=== PATIENT | male | born 1965 | race Caucasian/White ===

== ENCOUNTER 2020-02-11 13:41 | Inpatient (IN) | payer BC, SELFPAY ==
[2020-02-11] VITALS (20 sets, daily range): BP systolic 146–212; BP diastolic 90–136; PULSE 63–107; RESP 16–28; TEMP 36.7–37.1; O2SAT 93–99; BMI 42.0
--- NOTE | 2020-02-11 14:01 | ECG_ITS ---
Measurements Intervals [place] Rate: 64 P: 37 [place]: 170 QRS: -1 QRSD: 115 T: 26 QT: 429 QTc: 445 SINUS RHYTHM MODERATE INTRAVENTRICULAR CONDUCTION DELAY [110+ ms QRS DURATION] NONSPECIFIC T-WAVE ABNORMALITY No previous ECG available for comparison Electronically Signed On 02-12-2020 18:06:42 CDT by Geraldo Bee M.D. [email or web address]
--- NOTE | 2020-02-11 14:12 | ED_ITS ---
HPI - Psych General: Chief Complaint: Psychiatric Symptoms Stated Complaint: SI Time Seen by Provider: 02/11/20 13:55 Source: patient and EMS Mode of arrival: EMS Limitations: no limitations History of Present Illness: HPI Narrative: 54-year-old male who states he has been having suicidal ideations. Patient states that he took pills last night to kill himself. Friend found him asleep at home with empty bottles of melatonin ZzzQuil and Aleve. He states he took these in attempt to kill himself. He states he took them roughly at midnight. He is unsure how many he took. MD complaint: suicidal ideation Onset (ago): day(s) Duration: constant Relieving factors: none Exacerbating factors: none Associated symptoms: Reports depression and suicidal ideation Review of Systems Const: Denies: fever, chills, body aches or change in appetite Eyes: Denies: blurry vision or eye discomfort ENMT: Denies: throat pain or dental pain Card: Denies: chest pain Resp: Denies: shortness of breath GI: Denies: abdominal pain, nausea, vomiting or diarrhea : Denies: painful urination Musc: Denies: neck pain or back pain Skin/Breast: Denies: rash Neuro: Denies: headache Psych: Reports: depression and suicidal ideation Dominick/Lymph: Denies: easy bruising All/Imm: Denies: hives PFSH ED PFSH: Social History Smoking and tobacco status: never smoked Physical Exam Const: COMMON NORMALS: oriented x3 and healthy appearing GENERAL APPEARANCE: lethargic ORIENTATION/CONSCIOUSNESS: Yes lethargic HENMT: COMMON NORMALS: normocephalic and head/scalp atraumatic HEAD & SCALP: normocephalic and atraumatic Eye: COMMON NORMALS: PERRL and EOMs intact bilaterally PUPIL: Yes PERRL Neck/C-Spine: COMMON NORMALS: full ROM and supple Chest: COMMONS NORMALS: inspection of chest normal and palpation of chest normal Resp: COMMON NORMALS: normal respiratory effort, no retractions, no use of accessory muscles and clear to auscultation bilaterally AUSCULTATION: clear t o auscultation bilaterally Cardio: COMMON NORMALS: regular rate, regular rhythm and no murmurs RATE: regular rate RHYTHM: regular rhythm GI: COMMON NORMALS: normal to inspection, nondistended, normoactive bowel sounds, soft to palpation, non-tender and no masses PALPATION: Yes soft Extremity: COMMON NORMALS: normal to inspection and full ROM Neuro: COMMON NORMALS: oriented x3, moves all extremities and no focal motor deficits SENSORIUM/ORIENTATION: Yes lethargic Psych: COMMON NORMALS: mental status grossly normal and cooperative ATTITUDE: Yes withdrawn SPEECH: Yes minimal THOUGHT CONTENT: Yes suicidality Skin: COMMON NORMALS: no rashes or lesions noted and no wounds GENERAL SKIN EXAM: no rashes or lesions noted MDM - Psych MDM Narrative: Medical decision making narrative: Patient presents here with overdose on multiple medications. Patient hears slightly lethargic but will awaken and answer my questions. His Tylenol level is negative and he is no signs of reversible medications on board. Spoke to hospitalist will admit to the ICU as he needs medical clearance before psych placement. Patient placed on a 96-hour hold. Patient has been stable while in the ER. Lab Data: Labs: Lab Results 02/11/20 02/11/20 02/11/20 Range/Units 14:27 15:07 15:07 WBC 7.0 (4.0-10.0) 10^3/ uL RBC 5.69 H (4.1-5.3) 10^6/u L Hgb 16.9 H (11.7-16.6) g/dL Hct 52.8 H (42.0-52.0) % MCV 92.8 (80-94) fL MCH 29.7 (28.0-34.0) pg MCHC 32.0 (30.0-36.0) g/dL RDW 13.8 (12.1-15.1) % Plt Count 197 (130-400) 10^3/c mm MPV 11.0 H (7.4-10.4) fL Neut % (Auto) 83.2 % Lymph % (Auto) 11.1 % [place] % (Auto) 4.4 % Eos % (Auto) 0.3 % Baso % (Auto) 0.4 % Neut # (Auto) 5.9 (1.8-7.7) 10^3/u L Lymph # (Auto) 0.8 (0.8-4.8) 10^3/u L [place] # (Auto) 0.3 (0.2-0.9) 10^3/u L Eos # (Auto) 0.0 (0.0-0.8) 10^3/u L Baso # (Auto) 0.0 (0.0-0.1) 10^3/u L Nucleated RBC % (a uto) 0 % Nucleated RBCs # 0.0 /100WBC Sodium 142 (136-145) mmol/L Potassium 4.1 (3.5-5.1) mmol/L Chloride 103 (98-107) mmol/L Carbon Dioxide 14 L (22-29) mmol/L Anion Gap 29.1 H (5-19) BUN 12 (6-20) mg/dL Creatinine 1.0 (0.7-1.2) mg/dL GFR Calculation 77.3 L (90-130) mL/min Glucose 110 (65-115) mg/dL Calculated Osmolal ity 291 (285-295) mOsm/k g Calcium 9.2 (8.5-10.5) mg/dL Total Bilirubin 1.3 H (0.15-1.2) mg/dL AST 18 (0-40) U/L ALT 23 (0-41) U/L Alkaline Phosphata se 54 (40-130) IU/L Total Protein 7.1 (6.6-8.7) g/dL Albumin 4.2 (3.5-5.2) g/dL Globulin 2.9 (1.3-4.6) g/dL Salicylates < 0.3 L (3-10) mg/dL Urine Opiates Scre en Negative (Negative) ng/mL Acetaminophen < 5.0 L (10-30) ug/mL Ur Barbiturates Sc reen Negative (Negative) ng/mL Ur Phencyclidine S crn Negative (Negative) ng/mL Ur Amphetamines Sc reen Negative (Negative) ng/mL U Benzodiazepines Scrn Negative (Negative) ng/mL Urine Cocaine Scre en Negative (Negative) ng/mL U Marijuana (THC) Screen Negative (Negative) ng/mL Ethyl Alcohol < 10 (0-10) mg/dL EKG Data^: EKG 1: Attestation: I personally reviewed and interpreted this EKG as follows: EKG interpretation date: 02/11/20 EKG interpretation time: 14:21 Interpretation: nsr hr [address] or t wave abnormalities qrs 115 qtc 439 Critical Care Time Critical Care Time: Critical Care Time: Yes Total Critical Care Time: 35 Attestation: This case had a high probability of a clinically significant, sudden, or life threatening deterioration of this patient's condition which required my full and direct attention, intervention and personal management. Discharge Plan Discharge Patient Disposition: Admitted As Inpatient Clinical Impression: Suicidal ideation Overdose Qualifiers: Encounter type: initial encounter Condition: Stable Referrals: Renaldo Raymundo FNP-C [Primary Care Provider] - Coding Level of Care Code ED Asphalt Machine Operator for Chg Fwd Exam Comprehensive
--- NOTE | 2020-02-11 14:36 | PC.NURSE ---
pt placed in pt's gown and all pt belongings removed and placed in belongings bag
--- NOTE | 2020-02-11 14:56 | XR_ITS ---
WS: [id number] CHEST XRAY TECHNIQUE: Portable chest. CLINICAL INFORMATION: od COMPARISON: None. FINDINGS: Heart: Cardiomegaly Lungs: Lungs are clear. No consolidation or pleural effusion. Bones: Normal visualized bony structures. XR/XR chest 1V portable [id number] IMPRESSION: Cardiomegaly. Chest otherwise unremarkable.
[2020-02-11 15:14] LABS: Basophils % 0.4 %; Eosinophils % 0.3 %; Hematocrit 52.8 % (42.0-52.0); Hemoglobin 16.9 g/dL (11.7-16.6); Lymphocytes # 0.8 10^3/uL (0.8-4.8); Lymphocytes % 11.1 %; Mean Corpuscular Hemoglobin 29.7 pg (28.0-34.0); Mean Corpuscular Volume 92.8 fL (80-94); Monocytes # 0.3 10^3/uL (0.2-0.9); Monocytes % 4.4 %; Neutrophils # 5.9 10^3/uL (1.8-7.7); Neutrophils % 83.2 %; Nucleated Red Blood Cells % 0 %; Platelet Count 197 10^3/cmm (130-400); Red Blood Count 5.69 10^6/uL (4.1-5.3); Red Cell Distribution Width 13.8 % (12.1-15.1)
[2020-02-11 15:22] LABS: Amphetamines Screen Urine Negative (Negative); Barbiturates Screen Urine Negative (Negative); Benzodiazepines Screen Urine Negative (Negative); Cocaine Screen Urine Negative (Negative); Opiate Screen Urine Negative (Negative); PCP Screen Urine Negative (Negative); THC Screen Urine Negative (Negative)
[2020-02-11 15:38] LABS: Alanine Aminotransferase 23 U/L (0-41); Albumin Level 4.2 g/dL (3.5-5.2); Alkaline Phosphatase 54 IU/L (40-130); Anion Gap 29.1 (5-19); Aspartate Amino Transferase 18 U/L (0-40); Blood Urea Nitrogen 12 mg/dL (6-20); Calcium 9.2 mg/dL (8.5-10.5); Carbon Dioxide 14 mmol/L (22-29); Chloride 103 mmol/L (98-107); Globulin 2.9 g/dL (1.3-4.6); Glomerular Filtration Rate 77.3 mL/min (90-130); Glucose 110 mg/dL (65-115); Osmolality Calculated 291 mOsm/kg (285-295); Potassium 4.1 mmol/L (3.5-5.1); Sodium 142 mmol/L (136-145); Total Bilirubin 1.3 mg/dL (0.15-1.2); Total Protein 7.1 g/dL (6.6-8.7)
[2020-02-11 15:39] LABS: Acetaminophen < 5.0 ug/mL (10-30); Alcohol Level < 10 mg/dL (0-10); Salicylate < 0.3 mg/dL (3-10)
[2020-02-11] MEDS: hyDRALAzine 20 mg/mL INJ 1 mL 10 MG IVP ×3 (15:59→22:59)
--- NOTE | 2020-02-11 16:59 | P.HP_ITS ---
Providers/Chief Complaint Admitting Physician: Ginger Velasco MD Primary Care Provider: Renaldo Raymundo, [facility] Chief Complaint: OVERDOSE/ SI History of Present Illness Vic Louis is a 54 year old male with PMHx of Morbid obesity, Depression, MAGGIE; presents via EMS after friend found him at home on the floor somnolent after having intentionally overdosed on a mixture of melatonin, ZzzQuil and Aleve. Patient is quite somnolent during my assessment in the ER but is able to confirm this and states that he took a total of 30 mg of melatonin and approximately half a bottle of Seroquel. He admits to trying to harm himself due to worsening depression but is unwilling to provide further details on this. Per his medication list he does not seem like he takes any antidepressants. Mentions having driven to [place] yesterday [place] which does not seem to make a lot of sense. He does live alone and states that he quit smoking approximately a month ago. He tried to cut his left wrist yesterday but states that it did not work. He keeps repeating the phrases it is all too much and I want to this to end. He states that he is feeling sick to his stomach but up until yesterday was in his usual state of health. He has not been admitted at our facility in the past though there is an ER visit from 03/2018 when he presented with worsening depression and suicidal ideation. He denies any alcohol or illicit drug use. Work-up so far has been negative in cluding CBC, chemistry other than noted anion gap of 29.1. Normal LFTs, urine drug screen and alcohol screen are both negative, salicylates and acetaminophen are both negative as well. Vital signs other than blood pressure are within normal limits. Blood pressure is currently 209/136 and patient does not have a known history of hypertension. He has already received a 10 mg dose of hydralazine with repeat blood pressure being 186/120. 96-hour hold paperwork has been completed and is in the chart, one-on-one sitter is at bedside. Plan is to admit to ICU for medical clearance pending psychiatric evaluation. Review of Systems Const: Denies: fever or chills Eyes: Denies: change in vision ENMT: Reports: dry mouth Card: Denies: chest pain, swelling of feet/ankles or lightheadedness Resp: Denies: shortness of breath GI: Reports: nausea; Denies: abdominal pain or vomiting Musc: Denies: back pain Skin/Breast: Denies: rash Neuro: Reports: slurred speech Psych: Reports: depression, sleeping less and suicidal ideation Medications/Allergies Home Medications Medication Instructions Recorded Confirmed Last Taken Type ZzzQuil See Rx Instructions .ROUTE .COMPLEX 02/11/20 02/11/20 Unknown History melatonin 30 mg PO BEDTIME 02/11/20 02/11/20 Unknown History naproxen sodium [Aleve] 220 mg PO PRN 02/11/20 02/11/20 Unknown History Allergies Allergy/AdvReac Type Severity Reaction Status Date / Time fentanyl Allergy Unknown Verified 02/11/20 14:16 PFSH Acute PFSH: Medical History Depression Morbid obesity Obstructive sleep apnea Surgical History No significant past surgical history Family History (Updated 02/11/20 @ 17:11 by Ginger Velasco MD) Other Psychiatric illness Social History (Updated 02/11/20 @ 17:11 by Ginger Velasco MD) Smoking and tobacco status: former smoker Quit status (tobacco): has quit using tobacco Year quit tobacco: 12/2019 Alcohol intake: never Substance/Drug Use: never Lives independently: Yes Vitals/I&O/Wt Last Vital Signs Temp 98.3 F 02/11/20 13:44 Pulse 63 02/11/20 15:36 Resp 16 02/11/20 15:36 BP 209/136 02/11/20 15:36 Pulse Ox 94 02/11/20 14:07 Weight last 48 hrs Weight 129.274 kg Physical Exam Const: COMMON NORMALS: no apparent distress and oriented x3 GENERAL APPEARANCE: cooperative, comfortable and appears older than stated age NUTRITIONAL APPEARANCE: obese morbidly obese ORIENTATION/CONSCIOUSNESS: Yes awake and Yes lethargic HENMT: COMMON NORMALS: normocephalic, head/scalp atraumatic, hearing grossly normal bilaterally and moist oral mucous membranes HEAD & SCALP: normocephalic and atraumatic Eye: COMMON NORMALS: PERRL, EOMs intact bilaterally and conjunctivae normal CONJUNCTIVA: Yes conjunctivae normal PUPIL: Yes PERRL Neck/C-Spine: COMMON NORMALS: full ROM GENERAL: Yes normal visual inspection and Yes trachea midline OTHER: -short, thick neck Resp: COMMON NORMALS: normal respiratory effort, no retractions, no use of accessory muscles and clear to auscultation bilaterally EFFORT & INSPECTION: Yes able to speak in complete sentences, Yes symmetric chest movement and No tachypneic AUSCULTATION: clear to auscultation bilaterally Cardio: COMMON NORMALS: regular rate, regular rhythm, S1 normal heart sound, S2 normal heart sound and no murmurs RATE: regular rate RHYTHM: regular rhythm HEART SOUNDS: S1 normal and S2 normal GI: COMMON NORMALS: normal to inspection, nondistended, normoactive bowel sounds, soft to palpation and non-tender INSPECTION: Yes central obesity PALPATION: Yes soft Back/Pelvis: COMMON NORMALS: thoracic and lumbar spine normal to inspection Extremity: COMMON NORMALS: normal to inspection, full ROM, no clubbing, cyanosis or edema and no pedal edema Neuro: COMMON NORMALS: oriented x3, moves all extremities, no focal motor deficits and no sensory deficits noted Psych: COMMON NORMALS: mental status grossly normal, thought process normal, cooperative and speech normal SPEECH: Yes normal speech MOOD & AFFECT: Yes flat affect THOUGHT PROCESS: normal thought process Skin: COMMON NORMALS: no jaundice, no petechiae and no mottling NARRATIVE SKIN EXAM: -eczematous lesions on bilateral elbows, bilateral legs GENERAL SKIN EXAM: no rashes or lesions noted Data : 02/11/20 15:07 02/11/20 15:07 A&P Assessment and plan (1) Overdose: -Admits to intentional overdose on melatonin, ZzzQuil and naproxen with intention for self-harm -Secondary to worsening depression -Had also attempted to cut his left wrist yesterday -Quite somnolent likely due to medications -fall precautions -noted to be quite hypertensive, otherwise VSS -UDS, EtOH negative; negative salicylates, acetaminophen -CBC, chemistry wnl -antiemetics as needed Status: Acute Qualifiers: Encounter type: initial encounter Injury intent: intentional self-harm Qualified Code(s): T50.902A - Poisoning by unspecified drugs, medicaments and biological substances, intentional self-harm, initial encounter (2) Suicidal ideation: -on 96 hr hold, paperwork in chart -sitter at bedside -will need Psych evaluation when medically stable Status: Acute (3) Obstructive sleep apnea: -chronic hx of MAGGIE, does not use CPAP Status: Chronic (4) Morbid obesity: -BMI-42 kg/m2 Status: Chronic (5) Depression: -has known hx of depression, does not seem to be on any antidepressants per med list -may benefit from this as well as [facility] outpatient f/u Status: Chronic Qualifiers: Depression Type: unspecified Qualified Code(s): F32.9 - Major depressive disorder, single episode, unspecified Additional A&P Information -Hypertensive urgency; elevated BP in ED, received dose of hydralazine; continue to monitor vital signs; no known prior hx of HTN but may require this if continued elevated BP -CLD for now due to nausea; advance diet as tolerated -up with assist -Dispo: pending psych evaluation -Code status: FULL code -ICU admission due to 96 hr hold Attestations Medical Necessity Statement*: Vic Louis's hospital stay will require greater than 2 midnights for management of suicidal ideation with intentional drug overdose, needs medical clearance and psychiatric evaluation. Time Spent in Patient Care: Greater than 35 minutes (>than 50% of time spen t in counselling and/or direct pt care on unit) . Coding Level of Care Code Acute Payroll Lead for Chg Fwd Diagnoses Overdose T50.902C Encounter type: initial encounter Injury intent: intentional self-harm Suicidal ideation R45.851 Obstructive sleep apnea G47.33 Morbid obesity E66.01 Depression F32.9 Depression Type: unspecified
[2020-02-11] MEDS: ondansetron 2 mg/ML SDV 2 mL 4 MG IVP (18:31)
[2020-02-11] MEDS: sodium chloride 0.9% 1,000 ML 100 ML IV (19:53)
[2020-02-11] MEDS: cloNIDine 0.1 mg Tablet PO (20:49)
--- NOTE | 2020-02-11 23:08 | CTR_ITS ---
PROCEDURE INFORMATION: Exam: CT Head Without Contrast Exam date and time: 02/11/2020 11:10 PM Age: 54 years old Clinical indication: Speech disturbance; Slurred speech; Additional info: Stoke alert TECHNIQUE: Imaging protocol: Computed tomography of the head without contrast. Total DLP: 713.34 mGy-cm Radiation optimization: All CT scans at this facility use at least one of these dose optimization techniques: automated exposure control; mA and/or kV adjustment per patient size (includes targeted exams where dose is matched to clinical indication); or iterative reconstruction. Other technique: STROKE PROTOCOL was implemented. COMPARISON: No relevant prior studies available. FINDINGS: Brain: There is diffuse cerebral atrophy and chronic microvascular white matter disease. There is a focal hypodensity in the right caudate nucleus suggesting a chronic lacunar infarct. There is a focal hypodensity in the left caudate nucleus suggesting a chronic lacunar infarct. There is no acute intracranial hemorrhage. Ventricles: Normal. No ventriculomegaly. Bones/joints: The calvarium is intact. Sinuses: Visualized sinuses are unremarkable. No fluid levels. Mastoid air cells: The mastoid air cells are clear. Soft tissues: There is a 14 mm diameter round circumscribed fat attenuation mass in the right lacrimal gland. CT/CT head wo con* [id number] IMPRESSION: 1. No acute findings. 2. Old lacunar infarcts in the caudate nuclei bilaterally. 3. 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 ASSESSMENT: ASPECTS ([place] Stroke Program Early CT Score) is 10. Radiation Dose CTDIVOL = (mGy): DLP = 713.34 (mGy-cm)
[2020-02-11 23:10] LABS: Glucose Point of Care 102 mg/dL (70-110)
--- NOTE | 2020-02-11 23:24 | ECG_ITS ---
Measurements Intervals [place] Rate: 110 P: [place]: 0 QRS: -37 QRSD: 105 T: 47 QT: 323 QTc: 438 ATRIAL FLUTTER/TACHYCARDIA WITH RAPID VENTRICULAR RESPONSE MARKED LEFT AXIS DEVIATION [QRS AXIS < -30] POSSIBLE INFERIOR MYOCARDIAL INFARCTION [30 ms Q WAVE IN II/aVF], PROBABLY OLD INTERPRETATION BASED ON A DEFAULT AGE OF 40 YEARS No previous ECG available for comparison Electronically Signed On 02-12-2020 18:09:04 CDT by Geraldo Bee M.D. [email or web address]
[2020-02-11 23:56] LABS: Basophils # 0.1 10^3/uL (0.0-0.1); Basophils % 0.4 %; Eosinophils % 0.1 %; Hematocrit 60.9 % (42.0-52.0); Lymphocytes # 1.3 10^3/uL (0.8-4.8); Lymphocytes % 9.7 %; Mean Corpuscular HGB Conc 31.2 g/dL (30.0-36.0); Mean Corpuscular Hemoglobin 29.4 pg (28.0-34.0); Mean Corpuscular Volume 94.3 fL (80-94); Mean Platelet Volume 10.9 fL (7.4-10.4); Monocytes # 1.2 10^3/uL (0.2-0.9); Monocytes % 8.8 %; Neutrophils # 10.7 10^3/uL (1.8-7.7); Neutrophils % 80.4 %; Nucleated Red Blood Cells % 0 %; Platelet Count 262 10^3/cmm (130-400); Red Blood Count 6.46 10^6/uL (4.1-5.3); Red Cell Distribution Width 14.4 % (12.1-15.1); White Blood Count 13.2 10^3/uL (4.0-10.0)
[2020-02-12] VITALS (66 sets, daily range): BP systolic 126–234; BP diastolic 63–142; PULSE 66–119; RESP 12–25; TEMP 37.2–39.9; O2SAT 86–100
--- NOTE | 2020-02-12 00:01 | CTR_ITS ---
PROCEDURE INFORMATION: Exam: CT Angiography Head With Contrast Exam date and time: 02/12/2020 12:15 AM Age: 54 years old Clinical indication: Speech disturbance; Slurred speech; Additional info: Stroke alert TECHNIQUE: Imaging protocol: Computed tomography angiography of the head with intravenous contrast. 3D rendering: MIP and/or 3D reconstructed images were created by the technologist. Total DLP: 3114.8 mGy-cm Radiation optimization: All CT scans at this facility use at least one of these dose optimization techniques: automated exposure control; mA and/or kV adjustment per patient size (includes targeted exams where dose is matched to clinical indication); or iterative reconstruction. Contrast material: OMNI 350; Contrast volume: 95 ml; Contrast route: IV; COMPARISON: CT head wo con* [id number] 02/11/2020 11:13 PM FINDINGS: Right internal carotid artery: There is mild atherosclerotic disease in the cavernous portion of the right internal carotid artery without significant stenosis. Right anterior cerebral artery: No occlusion or significant stenosis. No aneurysm. Right middle cerebral artery: No occlusion or significant stenosis. No aneurysm. Right posterior cerebral artery: No occlusion or significant stenosis. No aneurysm. Right vertebral artery: No occlusion or significant stenosis. No aneurysm. Left internal carotid artery: There is mild atherosclerotic disease in the cavernous portion of the left internal carotid artery without significant stenosis. Left anterior cerebral artery: No occlusion or significant stenosis. No aneurysm. Left middle cerebral artery: No occlusion or significant stenosis. No aneurysm. Left posterior cerebral artery: origin of the left posterior cerebral artery. No occlusion or aneurysm. Left vertebral artery: No occlusion or significant stenosis. No aneurysm. Basilar artery: No occlusion or significant stenosis. No aneurysm. 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 IMPRESSION: No arterial stenosis, occlusion or aneurysm. PROCEDURE INFORMATION: Exam: CT Angiography Neck With Contrast Exam date and time: 02/12/2020 12:15 AM Age: 54 years old Clinical indication: Speech disturbance; Slurred speech; Additional info: Stroke alert TECHNIQUE: Imaging protocol: Computed tomography angiography of the neck with intravenous contrast. 3D rendering: MIP and/or 3D reconstructed images were created by the technologist. Total DLP: 3114.8 mGy-cm Radiation optimization: All CT scans at this facility use at least one of these dose optimization techniques: automated exposure control; mA and/or kV adjustment per patient size (includes targeted exams where dose is matched to clinical indication); or iterative reconstruction. Contrast material: OMNI 350; Contrast volume: 95 ml; Contrast route: IV; COMPARISON: CT head wo con* [id number] 02/11/2020 11:13 PM FINDINGS: Limitations: Moderate motion artifact limits evaluation of the central to mid portions of the carotid and vertebral arteries bilaterally. Right common carotid artery: No stenosis. No dissection or occlusion. Right internal carotid artery: Retropharyngeal course of the right internal carotid artery with mild atherosclerotic disease centrally and no apparent stenosis or occlusion. Marked motion artifact prevents evaluation of the carotid bifurcation. There are portions of the right distal common and proximal internal carotid artery which are not visible due to motion artifact. Right external carotid artery: Obscured centrally. No apparent occlusion. Right vertebral artery: No dissection or occlusion. Partially obscured in the proximal to midportion. Left common carotid artery: No stenosis. No dissection or occlusion. Left internal carotid artery: Retropharyngeal course of the left internal carotid artery with mild atherosclerotic disease centrally and no apparent stenosis or occlusion. Marked motion artifact prevents evaluation of the carotid bifurcation. There are portions of the left distal common and proximal internal carotid artery which are not visible due to motion artifact. Left external carotid artery: Obscured centrally. No apparent occlusion. Left vertebral artery: No dissection or occlusion. Partially obscured in the proximal to midportion. NECK: Bones/joints: Unremarkable Soft tissues: Soft tissues in the neck and thoracic inlet are unremarkable. Lungs: Lung apices are clear. CT/CT angio headneck* [id number] IMPRESSION: No visible significant arterial stenosis or occlusion. The exam is limited by motion artifact which prevents adequate evaluation of the distal common and proximal internal carotid arteries bilaterally. The central to mid portions of both vertebral arteries are also partially obscured. REFERENCES: NASCET CRITERIA. The degree of internal carotid artery stenosis is based on NASCET criteria. Normal is no stenosis. Mild is less than 50% stenosis. Moderate is 50-69% stenosis. Severe is 70% to 99% stenosis. Total occlusion is no detectable patent lumen. Radiation Dose CTDIVOL = (mGy): DLP = 3114.8~3114.8 (mGy-cm)
[2020-02-12 00:04] LABS: INR 1.05 (0.8-1.2)
--- NOTE | 2020-02-12 00:10 | PM.CCN ---
Critical Care Event Note Critical Care Event The high probability of a clinically significant, sudden or life threatening deterioration of the patient's neurovasvular system(s) required my full and direct attention, intervention and personal management. The critical care time is as shown. This time is in addition to time spent performing any reported procedures but includes the following: x Data and vital sign review and interpretation x Patient assessment, examination and intervention x Documentation x Medication orders and management Called emergently to the ICU for acute mental status change and neurological changes. I arrived within a minute of being called. Patient was irritable and not really able to follow commands. Quick neurological exam showed equally reactive pupils, what appeared to be grossly intact extraocular movements, lack of gag reflex, very slight right upper extremity drift. Patient was not really cooperative with remainder of examination. He was speaking words which I could understand but they did not make sense. He was taken immediately to CAT scan. Upon return more complete examination revealed an NIH score of 15. Of note on this repeat exam patient had absent response to confrontation of the right eye on repeated evaluation. He continued to have a right upper extremity drift. Patient also had positive Babinski on the right and downgoing toe on the left. Stroke alert was called and Dr. Carson came in to see him. Patient's last known well was around 10:30 PM when he was able to follow commands and speak more intelligibly. With persistent findings, TPA was ordered and bolus was initiated right at midnight. CTA of the head and neck has been ordered. We are working on notifying next of kin. The number we have on file is going straight to voicemail. Other available numbers are for nonfamily members. They are working on trying to get in touch with the family member. Stat labs have been ordered which I will follow-up on. We will follow serial neuro exams. I put in orders for TPA patient. Will call Dr. Carson when I have the CTA results back. Critical Care Time Critical Care Time: Code activated: No Critical Care Time (min): 75 Additional information about critical care time: I was called at 11:01 pm. I arrived 11:02 pm. Stroke Alert called 11:03 pm. Have spent 75 min in direct pt care thus far. Coding Level of Care Code Acute Parking Meter Installer for Mignon Watson
[2020-02-12 00:13] LABS: Alanine Aminotransferase 27 U/L (0-41); Albumin Level 5.3 g/dL (3.5-5.2); Alkaline Phosphatase 73 IU/L (40-130); Anion Gap 36.4 (5-19); Aspartate Amino Transferase 17 U/L (0-40); Blood Urea Nitrogen 8 mg/dL (6-20); Calcium 10.3 mg/dL (8.5-10.5); Chloride 104 mmol/L (98-107); Glomerular Filtration Rate 77.3 mL/min (90-130); Glucose 100 mg/dL (65-115); Osmolality Calculated 290 mOsm/kg (285-295); Potassium 5.4 mmol/L (3.5-5.1); Sodium 142 mmol/L (136-145); Total Bilirubin 0.7 mg/dL (0.15-1.2); Total Protein 9.3 g/dL (6.6-8.7)
[2020-02-12] MEDS: iohexol 350 mg/mL 100 mL Btl IV (00:17)
[2020-02-12 00:32] LABS: Troponin(5th) Baseline 17 ng/mL (0-15)
[2020-02-12 00:34] LABS: Carbon Dioxide 7 mmol/L (22-29)
[2020-02-12] MEDS: LORazepam 2 mg/mL INJ 1 mL (00:39)
[2020-02-12] MEDS: labetalol 5 mg/mL SDV 20mL 10 MG IVP (01:03)
[2020-02-12] MEDS: midazolam 1 mg/mL INJ 2 mL 4 MG (01:26)
[2020-02-12] MEDS: etomidate 10 ML 20 MG (01:27)
[2020-02-12] MEDS: rocuronium 10 mg/mL INJ 5mL 100 MG (01:27)
[2020-02-12 01:31] LABS: Troponin 5 2HR 19.43 ng/mL (0-15); Troponin 5 2HR Delta 2.43 ABS# (0-10)
--- NOTE | 2020-02-12 01:36 | P.PNCC_ITS ---
Critical Care Event Note Critical Care Event The high probability of a clinically significant, sudden or life threatening deterioration of the patient's respiratory and renal system(s) required my full and direct attention, intervention and personal management. The critical care time is as shown. This time is in addition to time spent performing any reported procedures but includes the following: x Data and vital sign review and interpretation x Patient assessment, examination and intervention x Documentation x Medication orders and management Laboratory studies collected earlier ended up showing increased H&H at 19/60, CO2 was down to 7 on CMP with an anion gap of 36. VBG was subsequently ordered and showed a pH of 7.0. Bicarb on the VBG was around 3. I have ordered lactic acid, troponin, serum ketones. I reviewed earlier studies. He had had an anion gap of 26 with a bicarb of 14 earlier. Salicylates and Tylenol level were negative. Alcohol was negative. Urine drug screen was unremarkable. Chest x-ray was negative. He did not have a urinalysis that I have found. I would not expect something like this from melatonin overdose. With Zzquil, anticholinergic symptoms are expected, but from what I could gather it was not clear exactly how much he took. He does appear clinically dry, has been confused and then became progressively lethargic. Some dysarthria. PERRL. He was urinating in the bed. Not clear halluncinations, fever, red or hot skin. I am concerned he may have taken something else he did not report which is contributing to the metabolic acidosis. He does not obviously appear to be septic with significant hypertension, lack of fever and normal white count earlier at presentation. Current white count is 13. That could be reactive from acute events this evening but have to keep in mind the possibility of an infectious source. He is not able to respiratorily compensate appropriately for the degree of metabolic acidosis currently present. I went on and made the decision to intubate him. I have also started the patient on nicardipine drip for blood pressure control in the setting of TPA administration. I did go on and start him on a bicarb drip. With recent initiation of TPA, I have not placed an NG tube. We are going to use a smaller Cisneros catheter currently to see if we can get some urine. We want to minimize any resistance or potential injury that might contribute to bleeding. I have not ordered any ABGs currently but will follow venous blood gas. I have asked respiratory not to do a sputum culture or deep suction at this time also given that TPA bolus was just administered. We have continued to be unable to get in touch with family. He has a friend that nurses were able to speak to but that person does not have power of district attorney. They were going to continue to try to get in touch with patient's sister. Mr. Louis is in critical condition with severe metabolic acidosis with anion gap, currently of unclear etiology, clinical evidence of acute stroke earlier leading to TPA administration, hypertensive urgency, polycythemia, in addition to the suicidal ideation and overdose that he originally presented with. Critical Care Time Critical Care Time: Code activated: No Critical Care Time (min): 45 Additional information about critical care time: 45 additional minutes apart from intubation procedure for a total critical care time on 02/12/2020 of 62 minutes thus far Procedures Intubation Sedative: etomidate Mg given: 20 Paralytic: rocuronium Mg given: 100 Laryngoscope: fiber optic video scope ET tube size: 8 ET tube uncuffed: No Tube secured depth (cm): 26 Tube secured location: lips Tube placement confirmation: visualized tube passing through cords, equal breath sounds bilaterally, no breath sounds over epigastrium and color change noted Patient tolerated procedure: well Intubation complications: none Additional comments: Patient also received 2 mg of Versed. Attempt was made x2. Initially no color change and I suspect when we pulled out the stylette, the tube did not advance through the cords as was originally noted. ET tube cuff was deflated and tube was withdrawn. There was a scant, couple of millimeter bit of sputum with a brownish red-tinge at the time this tube was withdrawn. No visible bleeding was seen otherwise during this or the second intubation attempt. Both times vocal cords were easy to visualize. Coding Level of Care Code Acute Cnc Mill Programmer for Mignon Watson
--- NOTE | 2020-02-12 01:38 | XR_ITS ---
WS: [id number] CHEST XRAY TECHNIQUE: Portable chest. CLINICAL INFORMATION: post intubation COMPARISON: February 11, 2020 FINDINGS: Endotracheal tube with tip above the vince measuring 3.3 cm in good position. Heart: Cardiomegaly. Lungs: Shallow inspiration. No acute-appearing pulmonary infiltrates. Bones: Mild thoracic curve. XR/XR chest 1V portable [id number] IMPRESSION: 1. Endotracheal tube with tip 3.3 cm above the vince. 2. Stable cardiomegaly. 3. Shallow inspiration. No acute-appearing pulmonary infiltrates.
[2020-02-12 01:47] LABS: Lactic Sepsis W/Reflex 9.2 mmol/L (0.5-2.2)
[2020-02-12 01:49] LABS: Ketone (Acetest) Serum Negative (Negative)
[2020-02-12] MEDS: propofol 1,000 MG/100 ML INJ 15.5 MG IV (01:50)
[2020-02-12] MEDS: nicardipine 20 MG/200 ML PREMIX 50 MG IV (01:52)
[2020-02-12 02:22] LABS: HCO3 VBG 3.2 mmol/L (24-28); PCO2 VBG 12.4 mmHg (41-51); PO2 VBG 77.8 mmHg (25-40); pH VBG 7.02 (7.32-7.42)
[2020-02-12 02:23] LABS: Base Excess VBG -25.4 mmol/L (-3.0-3.0)
[2020-02-12 02:51] LABS: Add Urine Microscopic? YES; Bilirubin Urine Neg (NEGATIVE); Blood Urine 3+ (Negative); Glucose Urine UA Norm (Normal); Ketones Urine 1+ (Negative); Leukocyte Esterase Urine Negative (Negative); Nitrate Urine Negative (Negative); Protein Urine Trace (Negative); Urine Appearance Clear (CLEAR); Urine Color Yellow (Yellow); Urobilinogen Urine Norm (Negative); pH Urine 5 (5-7)
[2020-02-12 02:52] LABS: Add Urine Culture? No; Bacteria Urine TRACE; RBC Urine 0-4 /hpf (0-2); Squamous Epithelial Cell Urine RARE (0-5); WBC Urine RARE /hpf (0-5)
[2020-02-12 03:00] LABS: Reflex Lactate Order REFLEX LACTIC ORDERD
[2020-02-12 03:16] LABS: Chol HDL Ratio 5.73 mg/dL (1.0-5.00); Cholesterol 235 mg/dL (0-200); Creatine Phosphokinase 59 U/L (39-308); HDL Cholesterol 41 mg/dL (60-100); LDL Cholesterol Calculated 162 mg/dL (50-129); LDL HDL Ratio 3.95 RATIO (0.00-3.22); Triglycerides 158 mg/dL (0-150)
[2020-02-12 03:19] LABS: Salicylate < 0.3 mg/dL (3-10)
[2020-02-12 03:33] LABS: Basophils # 0.2 10^3/uL (0.0-0.1); Basophils % 0.5 %; Eosinophils % 0.1 %; Hematocrit 62.7 % (42.0-52.0); Hemoglobin 19.1 g/dL (11.7-16.6); Lymphocytes # 1.8 10^3/uL (0.8-4.8); Lymphocytes % 5.7 %; Mean Corpuscular HGB Conc 30.5 g/dL (30.0-36.0); Mean Corpuscular Hemoglobin 29.6 pg (28.0-34.0); Mean Corpuscular Volume 97.2 fL (80-94); Mean Platelet Volume 10.8 fL (7.4-10.4); Monocytes # 3.4 10^3/uL (0.2-0.9); Neutrophils # 25.1 10^3/uL (1.8-7.7); Neutrophils % 80.6 %; Nucleated Red Blood Cells % 0 %; Platelet Count 380 10^3/cmm (130-400); Red Blood Count 6.45 10^6/uL (4.1-5.3); Red Cell Distribution Width 14.6 % (12.1-15.1)
[2020-02-12 03:35] LABS: Blood Gas Sample Site LINE; Blood Gas Sample Type Venous; Blood Gas Tidal Volume 0.55; Oxygen Device VENT
[2020-02-12 03:39] LABS: Base Excess VBG -28.3 mmol/L (-3.0-3.0); HCO3 VBG 5.2 mmol/L (24-28); PCO2 VBG 29.7 mmHg (41-51); pH VBG 6.86 (7.32-7.42)
[2020-02-12 03:47] LABS: Anion Gap 36.4 (5-19); Blood Urea Nitrogen 11 mg/dL (6-20); Calcium 9.5 mg/dL (8.5-10.5); Chloride 107 mmol/L (98-107); Creatine Phosphokinase 66 U/L (39-308); Glomerular Filtration Rate 48.4 mL/min (90-130); Glucose 180 mg/dL (65-115); Osmolality Calculated 297 mOsm/kg (285-295); Potassium 6.4 mmol/L (3.5-5.1); Sodium 143 mmol/L (136-145)
[2020-02-12 03:49] LABS: Estmated Average Glucose 103; Hemoglobin A1C 5.2 % (4.0-6.0)
[2020-02-12 03:56] LABS: Lactic Acid level (Lactate) 8.1 mmol/L (0.5-2.2)
[2020-02-12 03:57] LABS: Carbon Dioxide 6 mmol/L (22-29)
[2020-02-12 04:13] LABS: White Blood Count 31.1 10^3/uL (4.0-10.0)
[2020-02-12] MEDS: calcium gluconate 0.1 gm/mL 10% SDV 10mL 1 GM IVP (04:22)
[2020-02-12] MEDS: vancomycin 1,000 MG in sodium chloride 0.9% 250 ML 250 MG IV (04:22)
[2020-02-12] MEDS: dextrose 50% syringe 50 mL 25 ML IVP (04:22)
[2020-02-12] MEDS: insulin regular-human 10 UNIT in SYRINGE 1 EACH IVP (04:23)
[2020-02-12] MEDS: sodium chloride 0.9% 1,000 ML 999 ML IV ×2 (05:18→06:15)
[2020-02-12] MEDS: levofloxacin-dextrose 5 % 750 MG/150 ML PREMIX 100 MG IV (05:18)
[2020-02-12] MEDS: piperacillin-tazobactam 3.375 GM in sodium chloride 0.9% (plus) 50 ML IV ×2 (05:20→18:37)
--- NOTE | 2020-02-12 05:24 | ECG_ITS ---
Measurements Intervals [place] Rate: 101 P: MT: 0 QRS: -7 QRSD: 126 T: 46 QT: 342 QTc: 445 ATRIAL FLUTTER/TACHYCARDIA WITH RAPID VENTRICULAR RESPONSE PROBABLE INFERIOR MYOCARDIAL INFARCTION [35 ms Q WAVE IN II/aVF], PROBABLY OLD No previous ECG available for comparison Electronically Signed On 02-12-2020 18:15:17 CDT by Geraldo Bee M.D. [id number]
[2020-02-12 06:24] LABS: Troponin 5 6HR 43.92 ng/mL (0-15)
[2020-02-12] MEDS: nicardipine 20 MG/200 ML PREMIX 25 MG IV (06:31)
[2020-02-12 06:33] LABS: Troponin 5 6HR Delta 26.92 ng/L (0-12)
--- NOTE | 2020-02-12 07:05 | PC.NURSE ---
2300: This nurse entered patients room. Patient was climbing out of bed. Patient unable to state name and where he is at. Neurochecks preformed. Drift noticed in Right arm. Patient unable to hold bilateral legs off bed. This nurse called charge into room. Blood pressure 240's/150. Dr. Casas notified of patients symptoms. Sroke alert called. Dr. Casas at bedside. Patient taken to CT. Dr Carson informed of patients current condition. Dr. Carson at bedside. Dr. Carson ordered to tPA. 9 mL bolus given with infusion rate of 81mLs an hour. Patient then taken to CT while tPA is infusing. After returning to room lab results were received. CO2 was 7, bicard 6, and pH 7.02. 10 mg of labetalol given for blood pressure in the 200's systolic. Dr. Casas intuabted at 0130. 20mg of Etomidate given along with 100 of Rocuronium, 2 mg of Versed. Patient sedated with propofol and started on Cardene gtt at 5mg/hr for blood pressure. Patient started on Sodium Bicarb gtt. VSS stable at this time. NIHSS performed Q4 hrs. 0400 ordered 2 1L blouses of NS. Patient started on Vancomycin, Zosyn, Levofloxacin and Thiamine. 0500 Poison control notified of patients condition. Guidelines sent to Dr Casas for suspected condition. Fomepizole given per Dr. Casas.
--- NOTE | 2020-02-12 08:31 | P.PNCC_ITS ---
Stroke Alert Activation ED Arrival Date: 02/11/20 ED Arrival Time: 22:30 ED Physican at Bedside: 23:03 Last Known Normal/at Baseline: < 1 hour ago Other Last Known Well Infomation: Patient in ICU with overdose of melatonin and ZZZquil was talking and moving all 4 extremities well when examined by his patient care nurse, Erik, at 2230. His blood pressure was markedly elevated. At 2250 he was noted to have slurred speech and repetitive phrase complaining of shortness of breath. Shortly after, he stopped speaking and would not respond to commands. He became more somnolent. Stroke alert was called by his nurse at 2303. I talked with the patient care nurse and then with Dr. Casas while she briefly examined the patient on his way to CT. At that time she was concerned that he had drift on the right and an upgoing toe. CT head showed atrophy. Telestroke was activated and I was brought in on Dr. Casas's exam after completion of CT head. Dr. Casas was planning to treat the patient's markedly elevated blood pressure but it came down passively so that he was candidate for tPA by the time that I arrived at the bedside a short time later and we completed the NIHSS at 2350. He had right visual field cut to threat, global aphasia, right arm relative weakness and right upgoing toe. No hemorrhage on CT. Blood pressure was controlled. He recieved the bolus of tPA at 0004, 61 minutes after stroke alert was called. Delay was imposed by his blood pressure. Stroke Alert Activated by: patient care nurse Stroke Alert Activation Time: 23:03 Stroke MD @ Bedside Time: 23:03 NIH Stroke Scale Time: 23:50 NIH Stroke Scale Score: NIH Stroke Scale Score: 15 NIH stroke score NIHSS: Level Of Consciousness - 1a: 1 Level Of Consciousness Questions - 1b: Neither Correct Level Of Consciousness Commands - 1c: Neither Correct Best Gaze - 2: Normal Visual Alarcon - 3: Complete Hemianopia Facial Palsy - 4: Normal Motor Arm Right - 5: Drift Motor Arm Left - 5: No Drift Motor Leg Right - 6: Effort Against Dickens Motor Leg Left - 6: Effort Against Dickens Limb Ataxia - 7: Absent Sensory - 8: Normal Best Language - 9: Mute; Global Aphasia Dysarthia - 10: Mild/Moderate Dysarthia Extinction And Inattention - 11: 0 Score: Total Score: 16 Stroke Alert Data/Treatment Time to CT of Head: 23:10 CT Results Time: 23:10 CT Impression: atrophy otherwise negative Stroke Risk Factors: obesity and depression tPA Started Date: 02/12/20 tPA Started Time: tPA Started - Time: 00:04 tPA Admin Prior to Arrival: No Other Patient & Family Education: Family could not be reached. Patient was unable to give consent. Standardized Stroke Orders Used: Yes Other Information: Patient was hyperventilating and acidotic. Presumably he was intoxicated on a substance other than melatonin and Dr. Casas was in search of determining other toxicity. Critical Care Time Critical Care Time: 30 - 74 mins Coding Level of Care Code Acute Pattern Scratcher for Mignon Watson
--- NOTE | 2020-02-12 09:27 | PC.OT ---
OT EVALUATION HELD DUE TPA ADMINISTRATION. WILL HOLD UNTIL 02/12
--- NOTE | 2020-02-12 09:41 | P.PN_ITS ---
Subjective Subjective: Interval history: Patient seen and examined, very unfortunate circumstances overnight, discussed extensively with Dr. Casas and reviewed documentation. He remains intubated and on mechanical ventilator support (70%/550/8), breathing over vent; has been off sedation for about 10 hrs, unresponsive. Off nicardipine drip with better controlled BP. Remains profoundly acidotic. Plan for HD, Dr. Hobson will place temporary catheter for this and Dr. Jc will arrange for emergent dialysis. Has had 1450 mL urine output so far. Afebrile, peaked T waves on telemetry though regular rhythm. On isolation precautions pending COVID-19 testing. Retail Service Technician called and states he has a copy of patient's healthcare directive, requested he fax it to us. Overall, poor prognosis. Medications: Reviewed: Yes Medication Review Details: Active Medications Generic Name Dose Route Start Last Admin Trade Name Freq PRN Reason Stop Dose Admin Acetaminophen 650 mg 02/11/20 18:28 Tylenol PO Q6H PRN MILD PAIN Aspirin 81 mg 02/13/20 09:00 Aspirin Ec PO DAILY QUEENIE Atorvastatin Calci um 20 mg 02/12/20 21:00 Lipitor PO BEDTIME QUEENIE Hydralazine HCl 10 mg 02/11/20 18:28 02/11/20 22:59 Apresoline IVP 10 mg Q4H PRN Administration SYSTOLIC BLOOD MA ESSURE nicardipine 20 mg in 200 mls @ 0 mls/hr 02/12/20 01:00 02/12/20 06:31 Cardene IV 2.5 mg/hr .Q0M QUEENIE 25 mls/hr Administration Protocol Per Protocol Sodium Bicarbonate 150 meq/ 1,000 mls @ 100 m ls/hr 02/12/20 01:15 02/12/20 01:50 Dextrose IV 100 mls/hr .Q10H QUEENIE Administration Propofol 1,000 mg in 100 m ls @ 0 mls/hr 02/12/20 01:45 02/12/20 04:00 Diprivan IV 0 mcg/kg/min .Q0M QUEENIE 0 mls/hr Titration Protocol Per Protocol Piperacillin Sod/T azobactam 50 mls @ 12.5 mls /hr 02/12/20 04:00 02/12/20 05:20 Sod 3.375 gm/ So dium Chloride IV 12.5 mls/hr Q8H QUEENIE Administration Protocol Levofloxacin/Dextr ose 750 mg in 150 mls @ 100 mls/hr 02/12/20 04:00 02/12/20 05:18 Levaquin-D5w IV 100 mls/hr Q24H QUEENIE Administration Protocol Fomepizole 130 mg/ Sodium 100.13 mls @ 200. 26 mls/hr 02/12/20 12:00 Chloride IV 02/13/20 06:29 Q6H QUEENIE Ondansetron HCl 4 mg 02/11/20 18:28 02/11/20 18:31 Zofran IVP 4 mg Q6H PRN Administration NAUSEA AND VOMITI NG fentanyl Allergy (Verified 02/11/20 14:16) Unknown Vitals/I&O/Wt Last Vital Signs Temp 98.1 F 02/11/20 19:45 Pulse 94 02/12/20 08:15 Resp 16 02/12/20 08:42 BP 140/80 02/12/20 08:15 Pulse Ox 96 02/12/20 08:15 02/11/20 02/12/20 02/12/20 22:59 06:59 14:59 Intake Total 1182.633 / 1182.633 Output Total 450 / 450 1000 / 1450 Balance -450 / -450 182.633 / -267.367 Weight last 48 hrs Weight 129.274 kg Physical Exam Const: COMMON NORMALS: no apparent distress GENERAL APPEARANCE: ill appearing, appears older than stated age and patient mechanically ventilated NUTRITIONAL APPEARANCE: obese morbidly obese ORIENTATION/CONSCIOUSNESS: Yes other (unresponsive) HENMT: COMMON NORMALS: normocephalic and head/scalp atraumatic HEAD & SCALP: normocephalic and atraumatic MOUTH: other (orally intubated) Eye: PUPIL: Yes pupil size - right (fixed and dilated) and Yes pupil size - left (pinpoint) Neck/C-Spine: GENERAL: Yes normal visual inspection and Yes trachea midline OTHER: -short, thick neck Resp: COMMON NORMALS: normal respiratory effort, no retractions and no use of accessory muscles EFFORT & INSPECTION: Yes symmetric chest movement and No tachypneic OTHER: -intubated, breathing over vent (70%/550/8) Cardio: COMMON NORMALS: regular rate, regular rhythm, S1 normal heart sound, S2 normal heart sound and no murmurs RATE: regular rate RHYTHM: regular rhythm HEART SOUNDS: S1 normal and S2 normal GI: COMMON NORMALS: normal to inspection, nondistended, normoactive bowel sounds and soft to palpation INSPECTION: Yes central obesity PALPATION: Yes soft : BLADDER/KIDNEY EXAM: Yes catheter in place Catheter type (Male): urethral Back/Pelvis: COMMON NORMALS: thoracic and lumbar spine normal to inspection Extremity: COMMON NORMALS: normal to inspection and full ROM NARRATIVE EXTREMITY EXAM: -non-pitting edema of bilateral hands Neuro: PUPIL EXAM: Dilated: right, Pinpoint: left and Fixed/non-reactive: right OTHER: -unresponsive currently Psych: OTHER: -unable to assess due to unresponsiveness Skin: COMMON NORMALS: no jaundice NARRATIVE SKIN EXAM: -eczematous lesions on bilateral elbows, bilateral legs GENERAL SKIN EXAM: mottling (bilateral hands) Urinary Catheter Management^: Cisneros: Cath Placed During This Visit: yes Urethral Indwelling: Yes Reason for Continuing Indwelling Catheter: Accurate Measurement of Urinary Output in Critically Ill Patients Data : 02/12/20 03:10 02/12/20 03:10 Micro: Microbiology 02/12/20 05:54 Blood Culture - Preliminary Blood SPECIMEN COLLECTED A&P Assessment and plan (1) Metabolic acidosis, increased anion gap: -profoundly metabolic acidotic with increasing anion gap -on bicarbonate drip, fomepizole (per discussion with Poison Control) -discussed with nephrology Dr. Jc, plan for dialysis later today -surgery consult by Dr. Hobson appreciated; will place temporary dialysis catheter -worsening renal function Status: Acute (2) Acute respiratory failure: -intubated overnight for airway protection in light of decreased responsiveness, acidosis, and acute CVA -remains on mechanical ventilator support -no sedation though remains unresponsive -severe metabolic acidosis, lactic acidosis -no acute abnormality noted on CXR -seems to breathing over vent -COVID-19 testing, isolation precautions; done as patient was recently (2-3 weeks ago) in [facility] Status: Acute Qualifiers: Respiratory failure complication: hypoxia and hypercapnia Qualified Co de(s): J96.01 - Acute respiratory failure with hypoxia; J96.02 - Acute respiratory failure with hypercapnia (3) CVA (cerebral vascular accident): -code stroke overnight due to noted decreased responsiveness, received tPA (around midnight) and evaluated by Dr. Carson -currently unresponsive and on mechanical ventilator support -required nicardipine drip for BP control prior to tPA administration -R pupil fixed and dilated, L pupil pinpoint -profoundly acidotic so difficult to ascertain if neurological impairment primarily from CVA or from metabolic abnormality Status: Acute Qualifiers: CVA mechanism: unspecified Qualified Code(s): I63.9 - Cerebral infarction, unspecified (4) Overdose: -Admits to intentional overdose on melatonin, ZzzQuil and naproxen with intention for self-harm but with current metabolic abnormalities and significant change in clinical status, very suspicious for having possibly ingested ethylene glycol or methanol, testing pending -plan for emergent HD today -Secondary to worsening depression -Had also attempted to cut his left wrist yesterday -UDS, EtOH negative; negative salicylates, acetaminophen -CBC, chemistry wnl -antiemetics as needed Status: Acute Qualifiers: Encounter type: initial encounter Injury intent: intentional self-harm Qualified Code(s): T50.902A - Poisoning by unspecified drugs, medicaments and biological substances, intentional self-harm, initial encounter (5) NSTEMI (non-ST elevated myocardial infarction): -noted troponin elevation with significant delta of 27 -telemetry monitoring, noted peaked T waves -suspect this is likely type II secondary to demand ischemia with acute respiratory failure, degree of acidosis -no prior known hx of CAD, no prior cardiac workup Status: Acute (6) Suicidal ideation: -on 96 hr hold, paperwork in chart -sitter at bedside -will need Psych evaluation when medically stable Status: Acute (7) Obstructive sleep apnea: -chronic hx of MAGGIE, does not use CPAP Status: Chronic (8) Morbid obesity: -BMI-42 kg/m2 Status: Chronic (9) Depression: -has known hx of depression, does not seem to be on any antidepressants per med list -may benefit from this as well as [facility] outpatient f/u Status: Chronic Qualifiers: Depression Type: unspecified Qualified Code(s): F32.9 - Major depressive disorder, single episode, unspecified Additional A&P Information -Hypertensive urgency; elevated BP in ED, received dose of hydralazine; continue to monitor vital signs; no known prior hx of HTN but may require this if continued elevated BP -NPO -bedrest -Dispo: pending clinical improvement -Code status: FULL code -ICU admission due to vent support, need for emergent dialysis -called and spoke to patient's older sister Mary Turner ([phone]) who lives in [place] to update her on patient's clinical status and discuss need for emergent dialysis which she agrees to. She is the point of contact. -very guarded prognosis given change in clinical status, unresponsiveness Attestations Medical Necessity Statement*: Patient requires hospitalization for continued management of severe metabolic acidosis requiring emergent dialysis, acute respiratory failure on vent support, post-tPA management secondary to acute CVA. Time Spent in Patient Care: Greater than 35 minutes (>than 50% of time spent in counselling and/or direct pt care on unit) . Critical Care Time: The high probability of a clinically significant, sudden o r life threatening deterioration of the patient's [cardiovascular, respiratory, renal] system(s) required my full and direct attention, intervention and personal management. The critical care time is as shown. This time is in addition to time spent performing any reported procedures but includes the following: [x] Data and vital sign review and interpretation [x] Patient assessment, examination and intervention [x] Documentation [x] Medication orders and management Critical Care Time (min): 45 Coding Level of Care Code Acute Photographer Assistant for g Fwd Diagnoses Metabolic acidosis, increased anion gap E87.2 Acute respiratory failure J96.01; J96.02 Respiratory failure complication: hypoxia and hypercapnia CVA (cerebral vascular accident) I63.9 CVA mechanism: unspecified Overdose T50.902A Encounter type: initial encounter Injury intent: intentional self-harm NSTEMI (non-ST elevated myocardial infarction) I21.4 Suicidal ideation R45.851 Obstructive sleep apnea G47.33 Morbid obesity E66.01 Depression F32.9 Depression Type: unspecified
[2020-02-12 10:19] LABS: Osmolality Serum 377
--- NOTE | 2020-02-12 10:27 | PM.CONSULT ---
Providers/Reason For Consult Consulting Physican/Specialty*: Dr. Villegas Reason for Consult*: Hemodialysis catheter placement Attending Physician: Ginger Velasco MD Primary Care Provider: JHONY Brown History of Present Illness History of Present Illness Chief complaint Patient is in critical condition in the ICU HPI: Mr. Vic Louis is a 54 year old male with associated multiple medical comorbidities including morbid obesity, patient was overdose per history and he had severe metabolic acidosis and was recommended to obtain a dialysis access to help the patient in recovery yet the overall prognosis is poor per hospitalist description. Due to patient's recent travel to [place] he was tested for COVID-19 pending results. General surgery was consulted to obtain a dialysis access on urgent basis I was able to obtain an informed consent per patient's daughter and brother over the phone and that was witnessed per YONI Whittaker in the ICU. Particularly the patient is at high risk of bleeding since recent TPA was implemented for stroke Review of Systems General: Reports: ROS unobtainable due to endotracheal tube Meds/Allergies Home Medications and Allergies Home Medications Medication Instructions Recorded Confirmed Type ZzzQuil See Rx Instructions .ROUTE .COMPLEX 02/11/20 02/11/20 History melatonin 30 mg PO BEDTIME 02/11/20 02/11/20 History naproxen sodium [Aleve] 220 mg PO PRN 02/11/20 02/11/20 History Allergies Allergy/AdvReac Type Severity Reaction Status Date / Time fentanyl Allergy Unknown Verified 02/12/20 10:27 Current Medications Current Medications Generic Name Dose Route Start Last Admin Trade Name Freq PRN Reason Stop Dose Admin Hydralazine HCl 10 mg 02/11/20 18:28 02/11/20 22:59 Apresoline IVP 10 mg Q4H PRN Administration SYSTOLIC BLOOD PRESSURE nicardipine 20 mg in 200 mls @ 0 mls/hr 02/12/20 01:00 02/12/20 06:31 Cardene IV 2.5 mg/hr .Q0M QUEENIE 25 mls/hr Administration Protocol Per Protocol Sodium Bicarbonate 150 meq/ 1,000 mls @ 100 mls/hr 02/12/20 01:15 02/12/20 01:50 Dextrose IV 100 mls/hr .Q10H QUEENIE Administration Propofol 1,000 mg in 100 mls @ 0 mls/hr 02/12/20 01:45 02/12/20 04:00 Diprivan IV 0 mcg/kg/min .Q0M QUEENIE 0 mls/hr Titration Protocol Per Protocol Piperacillin Sod/Tazobactam 50 mls @ 12.5 mls/hr 02/12/20 04:00 02/12/20 05:20 Sod 3.375 gm/ Sodium Chloride IV 12.5 mls/hr Q8H QUEENIE Administration Protocol Levofloxacin/Dextrose 750 mg in 150 mls @ 100 mls/hr 02/12/20 04:00 02/12/20 05:18 Levaquin-D5w IV 100 mls/hr Q24H QUEENIE Administration Protocol Ondansetron HCl 4 mg 02/11/20 18:28 02/11/20 18:31 Zofran IVP 4 mg Q6H PRN Administration NAUSEA AND VOMITING PFSH Acute PFSH: Medical History Depression Hypertension Morbid obesity Neuralgia of right upper extremity seen by lAli Obstructive sleep apnea Surgical History No significant past surgical history Family History Other Psychiatric illness Social History Smoking and tobacco status: former smoker Quit status (tobacco): has quit using tobacco Year quit tobacco: 12/2019 Alcohol intake: never Substance/Drug Use: never Lives independently: Yes Vitals/I&O/Wt Last Vital Signs Temp 98.1 F 02/11/20 19:45 Pulse 98 02/12/20 10:00 Resp 16 02/12/20 08:42 BP 131/80 02/12/20 10:00 Pulse Ox 96 02/12/20 10:00 02/11/20 02/12/20 02/12/20 22:59 06:59 14:59 Intake Total 1182.633 / 1182.633 Output Total 450 / 450 1000 / 1450 Balance -450 / -450 182.633 / -267.367 Weight last 48 hrs Weight 285 lb Physical Exam Narrative: EXAM NARRATIVE: Patient is intubated BMI obese Head and neck examination PERRLA no masses no cervical lymphadenopathy no jaundice Patient is intubated on mechanical ventilation Abdomen nontender nondistended soft no organomegaly guarding or rigidity/no signs of peritonitis Extremities no cyanosis no clubbing no edema Data Micro: Micro: Microbiology 02/12/20 05:54 Blood Culture - Pr eliminary Blood SPECIMEN MARILUZ ORTIZ A&P Assessment and plan (1) Overdose: Plan of care; After thorough history physical examination and reviewing the chart, I counseled the patient's sister and brother for uregnt temporary dialysis catheter placement, indications, risks includinginjury of major vascular structures also the high risk of bleeding since the patient was on TPA 12 hours ago, benefits, and alternatives were all discussed with the patient's family Patient was tested for COVID-19 pending results All necessary precautions will be taken including droplet and contact precautions Informed consent per chart Assurance and education All questions have been answered Status: Acute Qualifiers: Encounter type: initial encounter Injury intent: intentional self-harm Qualified Code(s): T50.902A - Poisoning by unspecified drugs, medicaments and biological substances, intentional self-harm, initial encounter Consult Attestations Medical Necessity Statement: Medical necessity care is expected to cross 2 midnights Time Spent in Patient Care: Greater than 35 minutes (>than 50% of time spent in counselling and/or direct pt care on unit). Critical Care Time: Critical Care Time (min): 45 Coding Level of Care Code Acute [employer] Principal for Chg Fwd Diagnoses Overdose T50.902A Encounter type: initial encounter Injury intent: intentional self-harm
--- NOTE | 2020-02-12 13:00 | P.PCN_ITS ---
Procedure/Consent Time out: Time Out Performed: Yes Consent: Consent for Procedure: Consent obtained from other (indicate) (Patient's sister and brother), Emergency procedure, Risks & Benefits reviewed and Agrees to proceed with procedure Procedure Narrative: Pre Procedure diagnosis; severe metabolic acidosis Postprocedure diagnoses the same Procedure done; placement of 12 Pashto temporary dialysis catheter right femoral vein Due to COVID-19 as patient is pending testing ,ll droplet and contact precautions were undertaken and the procedure was done in the ICU in an isolated room. Medications were reviewed to assess for anticoagulant usage.Risks and benefits and prevention of central line associated blood stream infection (CLABSI) were discussed with the patient/CPOA, and a consent was obtained. Monitors were in place and monitored throughout the procedure. All necessary supplies were available prior to start. Hand hygiene was completed prior to starting. Maximum barrier technique was utilized including a sterile gown, sterile gloves with a hat and mask.Site was was prepped with [chlorhexidine] and a full body drape was placed. 5 mL of 2% lidocaine was injected into the skin with a 25 gauge needle. Description Local anesthetic in the form of 1% lidocaine infiltrated at the site of insertion of the catheter Prep& drape was done under the usual sterile technique of the [facility] groin, lidoc candice 1% was injected at the site of the stick, started by right femoral vein under ultrasound guidance and all the interpretation was done by me through the whole entire procedure, no intraluminal thrombosis was identified. The right femoral vein stick retrieved venous blood was obtained from the first stick, a guidewire was then threaded, at that point the guidewire was secured to the drapes with a hemostat and the needle was taken out, followed by that serial dilators ,the dilator was then taken out, glide wire maintained to be in good position and the hemodialysis catheter 12 Pashto was introduced onto the guidewire, with venous and arterial hubs were flushed and retrieved venous blood without difficulty Hep-Lock's were then applied I Was present for the whole entire procedure No specimen No immediate complication Estimated blood loss 5-10 ml Rubber Calender Helper surgical jadon Jacobs Circulating nurse ICU nurse Amando Patient continued to be stable through the whole entire procedure and on mechanical ventilation Acute Procedures Epistaxis Control: Time out performed: Yes
[2020-02-12] MEDS: sodium chloride 0.9% 1,000 ML 100 ML IV (14:28)
[2020-02-12 14:31] LABS: Coronavirus Lab Test PTC NOT DETECTED
--- NOTE | 2020-02-12 15:05 | PM.CONSULT ---
Providers/Reason For Consult Consulting Physican/Specialty*: Nephrology Reason for Consult*: Eval for acidosis Attending Physician: Ginger Velasco MD Primary Care Provider: JHONY Brown History of Present Illness History of Present Illness Vic Louis is a 54 year old male. Thank you for consultation. Today I reviewed this 54 year old gentleman. He was admitted throughout the night last night, having taken a combination of Melatonin, Seroquel, ZzzQuil. Throughout the night his mentation got progressively worse. A stroke code was called, he fulfilled criteria for acute tPA therapy. For details of this documentation please refer to the neurology consultation. Since this time, his mentation got progressively worse, he was intubated and mechanically ventilated. His blood pressure was intermittently elevated, and has remained relatively stable. Unfortunately his anion gap progressively increased, his lactic acid level also increased roughly 9. There was concern for ingestion of volatiles. Workup was sent including serum osmolality, as well as volatile screen, and we are waiting for the results. In the meantime Fomepizole was initiated. Creatinine has remained at ~1.5 and he is making urine. No known history of HETAL. Surgery has kindly placed a high risk dialysis line for our use. Review of Systems Narrative: ROS unobtainable as critically sick in the ICU Meds/Allergies Home Medications and Allergies Home Medications Medication Instructions Recorded Confirmed Type ZzzQuil See Rx Instructions .ROUTE .COMPLEX 02/11/20 02/11/20 History melatonin 30 mg PO BEDTIME 02/11/20 02/11/20 History naproxen sodium [Aleve] 220 mg PO PRN 02/11/20 02/11/20 History Allergies Allergy/AdvReac Type Severity Reaction Status Date / Time fentanyl Allergy Unknown Verified 02/12/20 10:27 Current Medications Current Medications Generic Name Dose Route Start Last Admin Trade Name Freq PRN Reason Stop Dose Admin Hydralazine HCl 10 mg 02/11/20 18:28 02/11/20 22:59 Apresoline IVP 10 mg Q4H PRN Administration SYSTOLIC BLOOD PRESSURE nicardipine 20 mg in 200 mls @ 0 mls/hr 02/12/20 01:00 02/12/20 06:31 Cardene IV 2.5 mg/hr .Q0M QUEENIE 25 mls/hr Administration Protocol Per Protocol Sodium Bicarbonate 150 meq/ 1,000 mls @ 100 mls/hr 02/12/20 01:15 02/12/20 12:57 Dextrose IV 100 mls/hr .Q10H QUEENIE Administration Propofol 1,000 mg in 100 mls @ 0 mls/hr 02/12/20 01:45 02/12/20 04:00 Diprivan IV 0 mcg/kg/min .Q0M QUEENIE 0 mls/hr Titration Protocol Per Protocol Piperacillin Sod/Tazobactam 50 mls @ 12.5 mls/hr 02/12/20 04:00 02/12/20 05:20 Sod 3.375 gm/ Sodium Chloride IV 12.5 mls/hr Q8H QUEENIE Administration Protocol Levofloxacin/Dextrose 750 mg in 150 mls @ 100 mls/hr 02/12/20 04:00 02/12/20 05:18 Levaquin-D5w IV 100 mls/hr Q24H QUEENIE Administration Protocol Fomepizole 1,300 mg/ Sodium 101.3 mls @ 200.26 mls/hr 02/12/20 13:15 02/12/20 13:22 Chloride IV 02/13/20 07:46 200.3 mls/hr Q6H QUEENIE Administration Sodium Chloride 1,000 mls @ 100 mls/hr 02/12/20 14:11 02/12/20 14:28 Sodium Chloride 0.9% IV 02/13/20 00:10 100 mls/hr .Q10H ONE Administration Ondansetron HCl 4 mg 02/11/20 18:28 02/11/20 18:31 Zofran IVP 4 mg Q6H PRN Administration NAUSEA AND VOMITING PFSH Acute PFSH: Medical History Depression Hypertension Morbid obesity Neuralgia of right upper extremity seen by [place] Obstructive sleep apnea Surgical History No significant past surgical history Family History Other Psychiatric illness Social History Smoking and tobacco status: former smoker Quit status (tobacco): has quit using tobacco Year quit tobacco: 12/2019 Alcohol intake: never Substance/Drug Use: never Lives independently: Yes Vitals/I&O/Wt Last Vital Signs Temp 98.9 F 02/12/20 10:15 Pulse 101 H 02/12/20 14:00 Resp 23 H 02/12/20 14:32 BP 135/91 02/12/20 14:00 Pulse Ox 100 02/12/20 14:00 02/12/20 02/12/20 02/12/20 06:59 14:59 22:59 Intake Total 1182.633 / 2598.370 8597 / 1000 Output Total 1000 / 1450 Balance 182.633 / -653.340 3565 / 1000 Weight last 48 hrs Weight 129.274 kg Physical Exam Const: ORIENTATION/CONSCIOUSNESS: Yes other (Obtunded in the ICU ) HENMT: COMMON NORMALS: normocephalic and head/scalp atraumatic HEAD & SCALP: normocephalic and atraumatic Neck/C-Spine: COMMON NORMALS: no JVD Lymph: LYMPHATIC: no lymphadenopathy noted Resp: COMMON NORMALS: normal respiratory effort and no retractions Cardio: COMMON NORMALS: no JVD, regular rate and regular rhythm RATE: regular rate RHYTHM: regular rhythm Extremity: COMMON NORMALS: normal to inspection Urinary Catheter Management^: Cisneros: Cath Placed During This Visit: no Urethral Indwelling: Yes Reason for Continuing Indwelling Catheter: Accurate Measurement of Urinary Output in Critically Ill Patients Data Micro: Micro: Microbiology 02/12/20 05:54 Blood Culture - Pr eliminary Blood SPECIMEN COLLEC ANGEL A&P Additional A&P Information 1. Renal failure and acidosis - given the increasing anion gap and our inability to exclude volatile ingestion, after discussing with [facility] [place] members including Dr Velasco, Dr Alfonso we believe that the best course of action will be to proceed with emergency dialysis - 3K bath, no UF, high flow settings including 400 blood flow, 800 dialysate flow, for 4 hrs; trouble with line flow - repeat chemistry at the end of dialysis - will watch for serum osmo and volatile screen - daily evaluation - am labs 2. VDRF per ICU, weaning as tolerated 3. Hemodynamics remain stable 4. Leukocytosis and shock - cultures sent and pending; broad spec Abx therapy Coding Level of Care Code Acute Process Control Technician for Chg Walter
--- NOTE | 2020-02-12 15:47 | PC.SLP ---
The patient is not able to participate in PERMACULTURE CONTRACTOR evaluation at this time due to his current status, responsiveness.
--- NOTE | 2020-02-12 16:26 | PC.NURSE ---
HEART RATE DROP Patient's heart rate dropped from 90-100s to 60's. Small increase in hypertension since dialysis treatment started. Dr. Velasco notified. Physician is okay with staying off cardene gtt at this time. No new orders at this time.
--- NOTE | 2020-02-12 20:48 | PC.NURSE ---
[facility] Casas aware.
--- NOTE | 2020-02-12 22:00 | PC.NURSE ---
KILEY NGUYEN CALLED AND WANTED UPDATE. FAMILY MEMBER WAS TOLD OF ANY CHANGES. FAMILY STATED THAT WHEN HE GETS BETTER HE CAN TELL US MORE. DR IZAGUIRRE WAS ASKED BY NURSE WHAT FAMILY HAD BEEN TOLD OF PT STATUS, DR STATED THEY WERE TOLD PT WAS DOING POORLY.
[2020-02-12] MEDS: hyDRALAzine 20 mg/mL INJ 1 mL 10 MG IVP (22:15)
[2020-02-12] MEDS: acetaminophen 650 mg Supp PR (22:51)
--- NOTE | 2020-02-12 23:27 | PC.NURSE ---
DR IZAGUIRRE WAS CALLED DUE TO FEVER. SHE GAVE ORDER TO CHANGE TYLENOL TO RECTAL.
--- NOTE | 2020-02-12 23:30 | PC.NURSE ---
PT CONVERTED OUT OF JUNCTIONAL RYTHMN.
[2020-02-13] VITALS (35 sets, daily range): BP systolic 157–222; BP diastolic 95–127; PULSE 80–109; RESP 12–37; TEMP 39–40.4; O2SAT 89–97; BMI 40.5
--- NOTE | 2020-02-13 01:14 | PC.NURSE ---
pt temp is 104.2, dr berumen was called. She gave order for cooling blanket and ice packs to be applied.
[2020-02-13] MEDS: piperacillin-tazobactam 3.375 GM in sodium chloride 0.9% (plus) 50 ML IV ×2 (02:17→12:46)
--- NOTE | 2020-02-13 04:11 | PC.NURSE ---
DR IZAGUIRRE GAVE THE OKAY TO DO COLD WATER LAVAGE THROUGH OG TUBE. WHEN PUTTING OG TUBE DOWN, A BROWN/RED SUBSTANCE CAME OUT OF ABDOMEN.
--- NOTE | 2020-02-13 04:13 | XR_ITS ---
WS: [id number] CHEST XRAY TECHNIQUE: Portable chest. CLINICAL INFORMATION: OG PLACEMENT VERIFICATION COMPARISON: February 12, 2020 FINDINGS: Endotracheal tube with tip 4.1 cm above the vince. Enteric tube tip below diaphragm. Heart: Normal cardiac silhouette. Lungs: Lungs are clear. No consolidation or pleural effusion. Bones: Normal visualized bony structures. XR/XR chest 1V portable [id number] IMPRESSION: 1. Endotracheal tube in good position. Enteric tube with tip below the diaphra gm. 2. Lungs are well aerated.
[2020-02-13] MEDS: levofloxacin-dextrose 5 % 750 MG/150 ML PREMIX 100 MG IV (04:16)
--- NOTE | 2020-02-13 04:33 | P.EN_ITS ---
Event Note Event Note: Patient's fever has continued to rise through the night, despite Tylenol. Most recent temperature is 105.3. In addition to the Tylenol we have used ice packs and went on and placed an NG tube with some ice water lavage as well. Upon placement of the NG tube, patient had a very dark brown almost black appearing thin substance suctioned from the gut. Interestingly had minimal odor. Did not smell or look like blood. Honestly smelled a bit like flat Coca- Cola. A sample of this has been saved and is in the room. Patient's overall color is improved compared to last night. He remains hypertensive but currently 190s over 90s. Heart rate is in the 80s and oxygen saturation is 97%. Pupils are still unequal and he remains unresponsive. He has not been on any sedation since around 10:[address] of the head is ordered for later this morning. He has no evidence of bleeding from the right femoral dialysis catheter site.
--- NOTE | 2020-02-13 06:04 | PC.NURSE ---
SHIFT SUMMARY Patient has remained unresponsive. Pt has been turned periodically. Pt has been febrile, ice packs applied. Latest temp was 103.1 rectally. Pt pupils remain unequal and unreactive. Dr Deluca rounded on pt. Pt blood pressure is better controlled this morning as well, 194/97. Hydralzine was given once when systolic 242.
--- NOTE | 2020-02-13 06:07 | P.PN_ITS ---
Subjective Subjective: Interval history: Patient continues to be in critical condition Uneventful placement of right femoral 12 Gibraltarian dialysis catheter yesterday done in the ICU by me Patient undergone dialysis Vitals/I&O/Wt Last Vital Signs Temp 103.3 F H 02/13/20 06:00 Pulse 80 02/13/20 06:00 Resp 18 02/13/20 04:02 BP 194/97 02/13/20 06:00 Pulse Ox 95 02/13/20 06:00 02/12/20 02/12/20 02/13/20 14:59 22:59 06:59 Intake Total 1238.383 / 8457.126 7658.3 / 2539.683 101.3 / 2640.983 Output Total 250 / 250 Balance 1238.383 / 9965.366 7669.3 / 2539.683 -148.7 / 2390.983 Weight last 48 hrs Weight 285 lb Physical Exam Narrative: EXAM NARRATIVE: Patient continues to be intubated in critical c ondition Abdomen nontender nondistended soft no organomegaly guarding or rigidity/no signs of peritonitis Obese Right groin femoral dialysis catheter line in place without complication and no evidence of bleeding or Hematoma formation. Urinary Catheter Management^: Cisneros: Cath Placed During This Visit: no Urethral Indwelling: Yes Reason for Continuing Indwelling Catheter: Accurate Measurement of Urinary Output in Critically Ill Patients Data : 02/12/20 03:10 02/12/20 03:10 Micro: Microbiology 02/12/20 05:54 Blood Culture - Preliminary Blood NEGATIVE TO DATE 02/12/20 16:07 Blood Culture - Preliminary Blood SPECIMEN COLLECTED A&P Assessment and plan (1) Overdose: Plan of care; From general surgery standpoint of view no further intervention Continue dialysis per nephrology recommendation Please call for questions or concerns Thank you for consulting general surgery to participate taking care Status: Acute Qualifiers: Encounter type: initial encounter Injury intent: intentional self-harm Qualified Code(s): T50.902A - Poisoning by unspecified drugs, medicaments and biological substances, intentional self-harm, initial encounter Attestations Medical Necessity Statement*: Medical necessity care is expected to cross 2 midnights Time Spent in Patient Care: 16 - 35 minutes (>than 50% of time spent in counselling and/or direct pt care on unit) . Coding Level of Care Code Acute Human Resources Trainee for Chg Fwd Diagnoses Overdose T50.902A Encounter type: initial encounter Injury intent: intentional self-harm
--- NOTE | 2020-02-13 07:20 | PC.NURSE ---
RECEIVED REPORT FROM HS SHIFT. PT NON-RESPONSIVE PUPILS NONREACTIVE ABDOMEN COOL & MOTTLED UPPER EXTREMITIES WARM & EDEMATOUS.
--- NOTE | 2020-02-13 08:28 | P.PN_ITS ---
Subjective Subjective: Interval history: Febrile overnight with Tmax-105.3 F, NGT placed for ice water lavage and treated with Tylenol VA; most recent temp is 103.[address] head later this AM. Labs ordered. Had 250 mL urine output overnight. No noted bleeding. Remains on vent support, FiO2 down to 60%. Received a dose of hydralazine due to significant hypertension. Pupils remain unequal. Repeat CT head significantly worse with noted hematoma, diffuse hydrocephalus and cerebral edema. Findings discussed with radiology. Called and updated patient's sister Mary Turner and she has agreed to changing CODE STATUS to DNR/DNI. Brother Slava Louis is on his way and Mary and another brother will make their way here tomorrow. I did explain that patient may before they get here and she understands. She would like to see him before withdrawing care. Medications: Reviewed: Yes Medication Review Details: Active Medications Generic Name Dose Route Start Last Admin Trade Name Freq PRN Reason Stop Dose Admin Acetaminophen 650 mg 02/12/20 22:46 02/12/20 22:51 Tylenol VA 650 mg Q6H PRN Administration fever Aspirin 81 mg 02/13/20 09:00 Aspirin Ec PO DAILY QUEENIE Atorvastatin Calci um 20 mg 02/12/20 21:00 02/12/20 19:42 Lipitor PO Not Given BEDTIME QUEENIE Hydralazine HCl 10 mg 02/11/20 18:28 02/12/20 22:15 Apresoline IVP 10 mg Q4H PRN Administration SYSTOLIC BLOOD VA ESSURE nicardipine 20 mg in 200 mls @ 0 mls/hr 02/12/20 01:00 02/12/20 10:00 Cardene IV 0 mg/hr .Q0M QUEENIE 0 mls/hr Titration Protocol Per Protocol Sodium Bicarbonate 150 meq/ 1,000 mls @ 100 m ls/hr 02/12/20 01:15 02/12/20 23:00 Dextrose IV 100 mls/hr .Q10H QUEENIE Administration Propofol 1,000 mg in 100 m ls @ 0 mls/hr 02/12/20 01:45 02/12/20 04:00 Diprivan IV 0 mcg/kg/min .Q0M QUEENIE 0 mls/hr Titration Protocol Per Protocol Piperacillin Sod/T azobactam 50 mls @ 12.5 mls /hr 02/12/20 04:00 02/13/20 02:17 Sod 3.375 gm/ So dium Chloride IV 12.5 mls/hr Q8H QUEENIE Administration Protocol Levofloxacin/Dextr ose 750 mg in 150 mls @ 100 mls/hr 02/12/20 04:00 02/13/20 04:16 Levaquin-D5w IV 100 mls/hr Q24H QUEENIE Administration Protocol Ondansetron HCl 4 mg 02/11/20 18:28 02/11/20 18:31 Zofran IVP 4 mg Q6H PRN Administration NAUSEA AND VOMITI NG fentanyl Allergy (Verified 02/12/20 10:27) Unknown Vitals/I&O/Wt Last Vital Signs Temp 103.3 F H 02/13/20 06:00 Pulse 80 02/13/20 06:00 Resp 17 02/13/20 08:24 BP 194/97 02/13/20 06:00 Pulse Ox 95 02/13/20 06:00 02/12/20 02/13/20 02/13/20 22:59 06:59 14:59 Intake Total 1301.3 / 2539.683 101.3 / 2640.983 Output Total 250 / 250 Balance 1301.3 / 2539.683 -148.7 / 2390.983 Weight last 48 hrs Weight 128.094 kg Weight 129.274 kg Physical Exam Const: COMMON NORMALS: no apparent distress GENERAL APPEARANCE: ill appearing, appears older than stated age and patient mechanically ventilated NUTRITIONAL APPEARANCE: obese morbidly obese ORIENTATION/CONSCIOUSNESS: Yes other (unresponsive) HENMT: COMMON NORMALS: normocephalic and head/scalp atraumatic HEAD & SCALP: normocephalic and atraumatic MOUTH: other (orally intubated) Eye: COMMON NORMALS: EOMs intact bilaterally and conjunctivae normal CONJUNCTIVA: Yes conjunctivae normal PUPIL: Yes pupil size - right (fixed and dilated) and Yes pupil size - left (slightly larger than pinpoint) Neck/C-Spine: GENERAL: Yes normal visual inspection and Yes trachea midline OTHER: -short, thick neck Resp: COMMON NORMALS: normal respiratory effort, no retractions and no use of accessory muscles EFFORT & INSPECTION: Yes symmetric chest movement and No tachypneic OTHER: -intubated, breathing over vent (50%/550/8) Cardio: COMMON NORMALS: regular rate, regular rhythm, S1 normal heart sound, S2 normal heart sound and no murmurs RATE: regular rate RHYTHM: regular rhythm HEART SOUNDS: S1 normal and S2 normal OTHER: -significantly hypertensive GI: COMMON NORMALS: normal to inspection, nondistended, normoactive bowel sounds and soft to palpation INSPECTION: Yes central obesity PALPATION: Yes soft : BLADDER/KIDNEY EXAM: Yes catheter in place Back/Pelvis: COMMON NORMALS: thoracic and lumbar spine normal to inspection Extremity: COMMON NORMALS: normal to inspection and full ROM NARRATIVE EXTREMITY EXAM: -non-pitting edema of bilateral hands Neuro: COMMON NORMALS: moves all extremities, no focal motor deficits and no sensory deficits noted PUPIL EXAM: Dilated: right, Pinpoint: left and Fixed/non-reactive: right OTHER: -unresponsive currently Psych: OTHER: -unable to assess due to unresponsiveness Skin: COMMON NORMALS: no jaundice NARRATIVE SKIN EXAM: -eczematous lesions on bilateral elbows, bilateral legs GENERAL SKIN EXAM: mottling (bilateral hands, abdomen) Urinary Catheter Management^: Cisneros: Cath Placed During This Visit: no Urethral Indwelling: Yes Reason for Continuing Indwelling Catheter: Accurate Measurement of Urinary Output in Critically Ill Patients Data : 02/13/20 08:50 02/13/20 08:50 Micro: Microbiology 02/12/20 05:54 Blood Culture - Preliminary Blood NEGATIVE TO DATE 02/12/20 16:07 Blood Culture - Preliminary Blood SPECIMEN COLLECTED A&P Assessment and plan (1) Metabolic acidosis, increased anion gap: -profoundly metabolic acidotic with increasing anion gap -on bicarbonate drip, fomepizole (per discussion with Poison Control) -discussed with nephrology Dr. Jc, trial of dialysis yesterday (02/11) not very successful -surgery consult by Dr. Hobson appreciated; placed temporary dialysis catheter (R femoral) -worsening renal function Status: Acute (2) Acute respiratory failure: -intubated on 02/10 for airway protection in light of decreased responsiveness, acidosis, and acute CVA -remains on mechanical ventilator support -no sedation though remains unresponsive -severe metabolic acidosis, lactic acidosis -no acute abnormality noted on CXR -seems to breathing over vent -COVID-19 testing negative, off isolation precautions; done as patient was recently (2-3 weeks ago) in [facility] Status: Acute Qualifiers: Respiratory failure complication: hypoxia and hypercapnia Qualified Code(s): J96.01 - Acute respiratory failure with hypoxia; J96.02 - Acute respiratory failure with hypercapnia (3) CVA (cerebral vascular accident): -code stroke overnight (02/11) due to noted decreased responsiveness, received tPA (around midnight) and evaluated by Dr. Carson -currently unresponsive and on mechanical ventilator support -required nicardipine drip for BP control prior to tPA administration -R pupil fixed and dilated, L pupil pinpoint -profoundly acidotic so difficult to ascertain if neurological impairment primarily from CVA or from metabolic abnormality -repeat CT head: Large new right basal ganglia and thalamic intraparenchymal hematoma extending into the midbrain and marni, new moderate diffuse hydrocephalus with obstruction of the third ventricle and mild right to left mid line shift, cerebral edema. Read worsening on imaging, lack of responsiveness clinically, noted continued hemodynamic instability, anticipate brain herniation. Status: Acute Qualifiers: CVA mechanism: unspecified Qualified Code(s): I63.9 - Cerebral infarction, unspecified (4) Overdose: -Admits to intentional overdose on melatonin, ZzzQuil and naproxen with intention for self-harm but with current metabolic abnormalities and significant change in clinical status, very suspicious for having possibly ingested ethylene glycol or methanol, testing pending -HD on 02/11 -Secondary to worsening depression -Had also attempted to cut his left wrist yesterday -UDS, EtOH negative; negative salicylates, acetaminophen -CBC, chemistry wnl -antiemetics as needed -methyl alcohol level ordered and pending; serum osm-377 Status: Acute Qualifiers: Encounter type: initial encounter Injury intent: intentional self-harm Qualified Code(s): T50.902A - Poisoning by unspecified drugs, medicaments and biological substances, intentional self-harm, initial encounter (5) NSTEMI (non-ST elevated myocardial infarction): -noted troponin elevation with significant delta of 27 -telemetry monitoring, noted peaked T waves -suspect this is likely type II secondary to demand ischemia with acute respiratory failure, degree of acidosis -no prior known hx of CAD, no prior cardiac workup Status: Acute (6) Suicidal ideation: Status: Acute (7) Obstructive sleep apnea: -chronic hx of MAGGIE, does not use CPAP Status: Chronic (8) Morbid obesity: -BMI-41 kg/m2 Status: Chronic (9) Depression: -has known hx of depression, does not seem to be on any antidepressants per med list -may benefit from this as well as [facility] outpatient f/u Status: Chronic Qualifiers: Depression Type: unspecified Qualified Code(s): F32.9 - Major dep ressive disorder, single episode, unspecified Additional A&P Information -Hypertensive urgency; elevated BP in ED, received dose of hydralazine; continue to monitor vital signs; no known prior hx of HTN but may require this if continued elevated BP -NPO -bedrest -Dispo: with continued decompensation, anticipate expiration -Code status: DNR/DNI -ICU admission due to vent support, need for emergent dialysis, critical illness -called and spoke to patient's older sister Mary Turner ([phone]) who lives in [place] to update her on patient's clinical status and discuss CT findings and likelihood of herniation; she agrees to DNR/DNI and is trying to ge t here tomorrow. She is the point of contact. Per DPOA paperwork in chart, patient had registered as organ donor. -very poor prognosis given change in clinical status, unresponsiveness. Impending in light of anticipated brain herniation Attestations Medical Necessity Statement*: Patient requires hospitalization for continued vent support, post-CVA management s/p tPA, management of severe metabolic acidosis. Time Spent in Patient Care: Greater than 35 minutes (>than 50% of time spent in counselling and/or direct pt care on unit) . Critical Care Time: The high probability of a clinically significant, sudden or life threatening deterioration of the patient's [cardiovascular, neuro, respiratory] system(s) required my full and direct attention, intervention and personal management. The critical care time is as shown. This time is in addition to time spent performing any reported procedures but includes the following: [x] Data and vital sign review and interpretation [x] Patient assessment, examination and intervention [x] Documentation [x] Medication orders and management Critical Care Time (min): 30 Coding Level of Care Code Acute Environmental Compliance Engineer for Chg Fwd Exam Comprehensive Diagnoses Metabolic acidosis, increased anion gap E87.2 Acute respiratory failure J96.01; J96.02 Respiratory failure complication: hypoxia and hypercapnia CVA (cerebral vascular accident) I63.9 CVA mechanism: unspecified Overdose T50.902A Encounter type: initial encounter Injury intent: intentional self-harm NSTEMI (non-ST elevated myocardial infarction) I21.4 Suicidal ideation R45.851 Obstructive sleep apnea G47.33 Morbid obesity E66.01 Depression F32.9 Depression Type: unspecified
--- NOTE | 2020-02-13 09:00 | CT_ITS ---
WS: [id number] CT HEAD TECHNIQUE: Noncontrast CT of the head obtained from the skullbase to the vertex. CLINICAL INFORMATION: s/p tpa COMPARISON: February 19, 2020 DLP: 804.[address] scans at [facility] use at least one of these dose 6 techniques: automated exposure control; mA and/or kV adjustment per patient size (includes targeted exams where dose is matched to clinical indication); or iterative reconstruction. FINDINGS: Since the prior examinations interval development of a large right basal ganglia and right thalamic intraparenchymal hematoma extending into the midbrain and marni. Small amount of hemorrhagic blood products extend into suprasellar cistern. Partial effacement of the third ventricle and aqueduc t. Partial effacement of the fourth ventricle. Blood products extend into the cisterna magna and cerv ical medullary junction. Crowding at the posterior fossa and foramen magnum. Right to left midline shift due to thalamic hematoma with moderate diffuse new hydrocephalus with tra nsependymal edema. Diffuse cerebral edema with effacement of overlying sulci. Right to left midline s hift measures 2-3 mm. Dilatation of the temporal horns. Hematoma measures approximately 3.6 x 2.3 x 2 .1 cm. No extra-axial fluid collections. Mastoid air cells are well aerated. Mild mucosal thickening in the paranasal sinuses. Fluid in the left maxillary sinus and posterior nasopharynx. Notified Dr. Velasco at 02/13/2020 10:[address]/CT head wo con* [id number] IMPRESSION: 1. Large new right basal ganglia and thalamic intraparenchymal hematoma extend ing into the midbrain and marni. Blood products extend into the foramen magnum a nd upper cervical canal. Hematoma measures 3.6 x 2.3 x 2.1 cm 2. New moderate diffuse hydrocephalus with obstruction of the third ventricle and aqueduct with mild right to left midline shift. 3. Small amount of blood products extend into the suprasellar cistern. 4. Diffuse cerebral edema with effacement of the overlying sulci. Crowding of the posterior fossa and foramen magnum. Suprasellar cistern remains patent.
[2020-02-13] MEDS: hyDRALAzine 20 mg/mL INJ 1 mL 10 MG IVP ×2 (09:01→12:46)
[2020-02-13 09:03] LABS: ABG PCO2 26.8 mmHg (35-45); ABG PH Result 7.48 (7.35-7.45); Arterial Blood Gas Hematocrit 44.7 % (42-52); Base Excess ABG -1.9 mmol/L (-2.0-2.0); Blood Gas Allen Test Pos; Blood Gas Sample Site Brachial, left; Blood Gas Sample Type Arterial; Blood Gas Tidal Volume 0.55; HCO3 ABG 20.1 mmol/L (22-26); Oxygen Device VENT
--- NOTE | 2020-02-13 09:06 | PC.OT ---
OT note: Pt intubated and with fever. Will hold OT eval at this time.
[2020-02-13 09:17] LABS: Basophils % 0.1 %; Hematocrit 43.4 % (42.0-52.0); Hemoglobin 14.6 g/dL (11.7-16.6); Lymphocytes # 1.3 10^3/uL (0.8-4.8); Lymphocytes % 7.8 %; Mean Corpuscular HGB Conc 33.6 g/dL (30.0-36.0); Mean Corpuscular Hemoglobin 29.4 pg (28.0-34.0); Mean Corpuscular Volume 87.5 fL (80-94); Mean Platelet Volume 11.5 fL (7.4-10.4); Monocytes # 2.5 10^3/uL (0.2-0.9); Monocytes % 15.2 %; Neutrophils # 12.5 10^3/uL (1.8-7.7); Neutrophils % 76.4 %; Nucleated Red Blood Cells % 0 %; Platelet Count 117 10^3/cmm (130-400); Red Blood Count 4.96 10^6/uL (4.1-5.3); Red Cell Distribution Width 14.5 % (12.1-15.1); White Blood Count 16.3 10^3/uL (4.0-10.0)
[2020-02-13 09:21] LABS: INR 1.32 (0.8-1.2)
[2020-02-13 09:28] LABS: Alanine Aminotransferase 21 U/L (0-41); Albumin Level 3.3 g/dL (3.5-5.2); Alkaline Phosphatase 56 IU/L (40-130); Anion Gap 26.2 (5-19); Aspartate Amino Transferase 53 U/L (0-40); Blood Urea Nitrogen 28 mg/dL (6-20); Calcium 7.5 mg/dL (8.5-10.5); Carbon Dioxide 20 mmol/L (22-29); Chloride 99 mmol/L (98-107); Globulin 2.5 g/dL (1.3-4.6); Glomerular Filtration Rate 10.6 mL/min (90-130); Glucose 147 mg/dL (65-115); Osmolality Calculated 294 mOsm/kg (285-295); Potassium 3.2 mmol/L (3.5-5.1); Sodium 142 mmol/L (136-145); Total Bilirubin 1.3 mg/dL (0.15-1.2); Total Protein 5.8 g/dL (6.6-8.7)
[2020-02-13 09:39] LABS: Creatine Phosphokinase 461 U/L (39-308); Lactic Acid level (Lactate) 5.4 mmol/L (0.5-2.2)
--- NOTE | 2020-02-13 13:20 | PC.SOCIAL ---
Sister Mary called very angry and wants to know who is providing information to Pastor Mcfadden and indicates this person is posting things on Facebook that he wouldnt know if hospital hadnt provided information. It appears family lives away and from what this nurse was told patient was brought to facility by this hand marker and a few others. Updated Dr Miles of the concern listed above and that Mary would like to speak with her. Spoke with Mayte in ICU and she indicates that she has not spoken with anyone other than the sister Mary. Dr Miles also indicates she has not spoken with the Wellness Guide. Mayte did mention the DPOA form that is in the physical chart. Upon review by this nurse indicates Mary would make decisions initially and if unable to make decisions alternate decision maker is brother Min. This was filled out in 2016. No newer version on file that we are aware of. Same time the DPOA was filled out in 2016 a HIPAA Release of information form was also filled out which indicates Crystal Mcfadden along with the Sister Mary and Brothsanjeev Copeland could obtain information. Crystal Mcfadden per Mary is the Mother to Pastor Mcfadden . Would recommend that decisions and information all go through Mary at this time when patient is unable to make decisions for himself unless a newer version of a notarized copy for DPOA is presented. Called Mary and discussed information above and that at this time am unable to locate anyone that has given information to the Wellness Guide as she mentioned. Did encourage her to reach out to Pastor Mcfadden and the Wellness Guide's Mother Crystal and discuss that she would prefer that social media postings be removed and no further communication be relayed to outside sources considering the severity of his condition and that patient is currently unable to speak for himself. Mary felt better after knowing she is the person on the DPOA to make decisions at this time and calmed down. She apologized for being so upset and we discussed it is understandable under the difficult circumstances. Update her that Dr Miles is aware she would like a phone call and will touch base later today.
--- NOTE | 2020-02-13 14:34 | PM.PN ---
Subjective Subjective: Interval history: Temp overnight noted with ice water NGT lavage. S/p dialysis yesterday but limited flow, we believe to be due to clotting occurring around the catheter. High Bp s/p hydralazine. Minimal UO so far today. Medications: Reviewed: Yes Medication Review Details: Active Medications Generic Name Dose Route Start Last Admin Trade Name Freq PRN Reason Stop Dose Admin Acetaminophen 650 mg 02/12/20 22:46 02/12/20 22:51 Tylenol AK 650 mg Q6H PRN Administration fever Aspirin 81 mg 02/13/20 09:00 Aspirin Ec PO DAILY QUEENIE Atorvastatin Calci um 20 mg 02/12/20 21:00 02/12/20 19:42 Lipitor PO Not Given BEDTIME QUEENIE Hydralazine HCl 10 mg 02/11/20 18:28 02/12/20 22:15 Apresoline IVP 10 mg Q4H PRN Administration SYSTOLIC BLOOD AK ESSURE nicardipine 20 mg in 200 mls @ 0 mls/hr 02/12/20 01:00 02/12/20 10:00 Cardene IV 0 mg/hr .Q0M QUEENIE 0 mls/hr Titration Protocol Per Protocol Sodium Bicarbonate 150 meq/ 1,000 mls @ 100 m ls/hr 02/12/20 01:15 02/12/20 23:00 Dextrose IV 100 mls/hr .Q10H QUEENIE Administration Propofol 1,000 mg in 100 m ls @ 0 mls/hr 02/12/20 01:45 02/12/20 04:00 Diprivan IV 0 mcg/kg/min .Q0M QUEENIE 0 mls/hr Titration Protocol Per Protocol Piperacillin Sod/T azobactam 50 mls @ 12.5 mls /hr 02/12/20 04:00 02/13/20 02:17 Sod 3.375 gm/ So dium Chloride IV 12.5 mls/hr Q8H QUEENIE Administration Protocol Levofloxacin/Dextr ose 750 mg in 150 mls @ 100 mls/hr 02/12/20 04:00 02/13/20 04:16 Levaquin-D5w IV 100 mls/hr Q24H QUEENIE Administration Protocol Ondansetron HCl 4 mg 02/11/20 18:28 02/11/20 18:31 Zofran IVP 4 mg Q6H PRN Administration NAUSEA AND VOMITI NG fentanyl Allergy (Verified 02/12/20 10:27) Unknown Vitals/I&O/Wt Last Vital Signs Temp 102.2 F H 02/13/20 10:00 Pulse 81 02/13/20 10:00 Resp 21 H 02/13/20 13:28 BP 187/95 02/13/20 10:00 Pulse Ox 93 02/13/20 10:00 02/12/20 02/13/20 02/13/20 22:59 06:59 14:59 Intake Total 1301.3 / 2539.683 301.3 / 2840.983 0 / 0 Output Total 250 / 250 1000 / 1000 Balance 1301.3 / 2539.683 51.3 / 2590.983 -1000 / -1000 Weight last 48 hrs Weight 128.094 kg Physical Exam Const: ORIENTATION/CONSCIOUSNESS: Yes other (Obtunded in the ICU ) HENMT: COMMON NORMALS: normocephalic and head/scalp atraumatic HEAD & SCALP: normocephalic and atraumatic Neck/C-Spine: COMMON NORMALS: no JVD Lymph: LYMPHATIC: no lymphadenopathy noted Resp: COMMON NORMALS: normal respiratory effort and no retractions Cardio: COMMON NORMALS: no JVD, regular rate and regular rhythm RATE: regular rate RHYTHM: regular rhythm Extremity: COMMON NORMALS: normal to inspection Urinary Catheter Management^: Cisneros: Cath Placed During This Visit: no Urethral Indwelling: Yes Reason for Continuing Indwelling Catheter: Accurate Measurement of Urinary Output in Critically Ill Patients Data : 02/13/20 08:50 02/13/20 08:50 Micro: Microbiology 02/13/20 08:57 Blood Culture - Preliminary Blood SPECIMEN COLLECTED 02/13/20 08:50 Blood Culture - Preliminary Blood SPECIMEN COLLECTED 02/12/20 05:54 Blood Culture - Preliminary Blood NEGATIVE TO DATE 02/12/20 16:07 Blood Culture - Preliminary Blood SPECIMEN COLLECTED A&P Additional A&P Information 1. Renal failure, acidosis - S/p dialysis yesterday; now anuric, ie due to ATN - Osmolar gap 77 consistent with volatile ingestion - No dialysis today (see below) - Avoid the usuals 2. Hemorrhagic stroke noted on CT; unequal pupils, no gag reflex. - consistent with extremely grim prognosis - plans to discuss goals of care with family with view to terminal extubation - if plans for on going aggressive care emerge from the meeting I will be available to reconsider further dialysis treatments - d/w Bedside RN, Dr Velasco Attestations Medical Necessity Statement*: Eval and mgmt of acidosis, renal failure Coding Level of Care Code Acute Center Receptionist for Mignon Watson
[2020-02-13 15:18] LABS: Blood Gas Sample Site Not specified; Blood Gas Sample Type Venous; Oxygen Device NC
--- NOTE | 2020-02-13 17:44 | PC.NURSE ---
BROTHER HERE D/T PT STATUS. PERSONAL BELONGINGS SENT WITH HIM. BAGS HAD CLOTHING, GLASSES, WALLET.
[2020-02-13] MEDS: morphine 4 mg/mL SDV 1 mL IVP ×2 (21:15→21:30)
[2020-02-13] MEDS: LORazepam 2 mg/mL INJ 1 mL IVP ×2 (21:16→21:31)
--- NOTE | 2020-02-13 21:40 | PC.NURSE ---
2114- Patient extubated by respiratory. 2129- After extubation patient began seizing. Dr. Casas ordered one time dose of Morphine 4 mg and Ativan 2 mg. Both given at 2130 and seizing stopped. 2132- Respirations and heart rate stopped at 2132. Dr. Casas notified. 2149- Family at bedside
--- NOTE | 2020-02-13 21:55 | P.DN_ITS ---
Pronouncement Note Date and Time of Date of : 02/13/20 Time of : 21:33 Preliminary cause of : Hemorrhagic cerebrovascular accident (CVA) Diagnoses/Contributing Factors (1) Metabolic acidosis, increased anion gap: (2) Overdose: (3) Suicidal ideation: (4) CVA (cerebral vascular accident): (5) Acute respiratory failure: (6) NSTEMI (non-ST elevated myocardial infarction): (7) Obstructive sleep apnea: (8) Morbid obesity: (9) Depression: Additional Details Pt was extubated at 21:15, as per discussion with family and after a scientific informatics project leader had come by for Mr. Louis. Comfort medications were provided. Vic had a seizure about 21:21 and at 21:33. Brother had stepped out but was notified on return. He called Mary, whom I have also just spoken to. Mary, who is the currently designated DPOA requested an autopsy. She and her brother Slava have understandable concerns and do not feel that Vic would have overdosed and in particular would not consume something like antifreeze or other toxic alcohol. I reiterated that suggestion of ethylene glycol or methanol poisoning was a clinical suspicion based on the severity of high anion gap acidosis he had combined with presence of what is called an high osmolar gap. Let her know that ethylene glycol and methanol levels were sent but will take some time to come back. I also reported to her that I have sent gastric contents for analysis. This was collected approximately 24 hours give or take after patient presented for admission. I am not sure that it will show anything but it was not the usual gastric contents I see. I did call Wes Beatrice, motion picture narrator for [facility]. He directed me to contact Franklin Sage for [facility], as that is patient's place of residence. I reviewed the case in full with both of them. Franklin Sage indicated that he would release the body to the family and that decision for autopsy would be their choice. I did let Mary know this. Explained to her an approximate cost was about $2500 and that it would be required to be paid upfront. She indicated that the family would most likely want to pursue autopsy. She and another brother are on their way here, leaving sometime tomorrow. They will contact the ICU staff or nursing passenger car cleaning supervisor upon their arrival and may try to call Dr. Velasco tomorrow. Currently patient will be taken to the [facility] while final decision is made about pursuing autopsy. Reviewed with Mary that the cause of in this situation is the hemorrhagic stroke. I suspect this was related to the profound metabolic abnormalities and high variability in blood pressure despite management. Area of hemorrhagic involvement was in a separate location from previous clinically indicated stroke (right visual field loss, right weakness, right positive Babinski and dysarthria). He did receive TPA after the initial stroke event, and consultation with neurology. The profound metabolic abnormalities are at this point in time presumptively secondary to ingestion of toxic alcohol based on the presently available information. Patient presented as suicidal with a reported overdose of melatonin and sleep aids generally containing diphenhydramine. It was also reported that he had cut himself. He did not clinically act like a typical severe anticholinergic overdose. Several blood cultures are still pending. Chest x-ray earlier today did not show any acute infiltrative process. Urinalysis was not suggestive of acute infection. He was treated empirically with antibiotics. Patient did have some polycythemia noted along with history of sleep apnea, tobacco use and obesity. He had evidence of troponin elevation felt to be secondary process. He did develop acute renal failure as well. He was treated with fomepizole and had attempted hemodialysis. Mary was given an opportunity to ask questions which were addressed. I had also personally spoken to Slava while he was here as well. Additional Data Confirmation of : no pulse, no respirations, no heart sounds and pupils fixed and dilated Family: contacted Additional persons at bedside: nursing staff and system administration advisor Attending physician: Ginger Velasco MD Attending/PCP notified?: Attending will be notified Was code activated?: No Autopsy requested?: Yes Advance directives?: Yes Hospice patient?: No DPN Attestastions Time Spent in Patient Care: Greater than 35 minutes (>than 50% of time spent in counselling and/or direct pt care on unit) . I spent approximately one hour talking to family, coroners and nursing staff this evening from 10- 11pm.
--- NOTE | 2020-02-14 16:52 | PM.DDS ---
Discharge Providers DDS Date of Admission: 02/11/20 16:02 Date Summary Completed: 02/14/20 Attending Provider at Admission: Ginger Velasco MD Time of : 21:33 Attending Provider at Discharge: Ginger Velasco MD Primary Care Provider: JHONY Brown Diagnoses Hospital Diagnoses (1) Metabolic acidosis, increased anion gap: (2) Overdose: Qualifiers: Encounter type: initial encounter Injury intent: intentional self-harm Qualified Code(s): T50.902A - Poisoning by unspecified drugs, medicaments and biological substances, intentional self-harm, initial encounter (3) Suicidal ideation: (4) CVA (cerebral vascular accident): Qualifiers: CVA mechanism: unspecified Qualified Code(s): I63.9 - Cerebral infarction, unspecified (5) Acute respiratory failure: Qualifiers: Respiratory failure complication: hypoxia and hypercapnia Qualified Code(s): J96.01 - Acute respiratory failure with hypoxia; J96.02 - Acute respiratory failure with hypercapnia (6) NSTEMI (non-ST elevated myocardial infarction): (7) Obstructive sleep apnea: (8) Morbid obesity: (9) Depression: Qualifiers: Depression Type: unspecified Qualified Code(s): F32.9 - Major depressive disorder, single episode, unspecified Reason for Visit Reason for Visit: Reason For Visit: OVERDOSE/ SI Summary Date and Time of : Date of : 02/13/20 Time of : 21:33 Summary: Summary: Patient was initially admitted secondary to suicidal ideation and intentional overdose on anticholinergic medications in the form of sleep aids. Unfortunately he decompensated on the night following his admission with noted neurological deficits and acute stroke following which he received tPA at the direction of neurology. Patient was intubated for airway protection and unfortunately remained unresponsive despite not being on sedation. He was quickly noted to have unequal pupils with the right pupil being dilated and fixed. He had already begun to develop significant increased anion gap metabolic acidosis at which point he was started on a sodium bicarbonate drip and fomepizole following consultation with Poison Control, and emergent dialysis attempted. Source of metabolic acidosis is suspected to be toxic alcohol (either methanol or ethylene glycol) though we have been unable to confirm this. Ethyl alcohol levels are sent and pending. Unfortunately due to hyperviscosity, attempt at hemodialysis was unsuccessful. Interestingly, patient's subsequent labs showed significant improvement including normalization of hemoglobin, significant drop in leukocytosis and improvement in acidosis. Unfortunately patient and unresponsive and intubated though was consistently breathing over the ventilator. Follow-up CT head showed diffuse cerebral edema, large right basal ganglia and thalamic hematoma, diffuse hydrocephalus. Clinically patient had started to show hemodynamic instability with high suspicion for impending brain herniation. Prognosis was discussed with patient's family extensively with decision made to terminally extubate the patient. Cause of is likely hemorrhagic CVA secondary to hypertensive emergency despite antihypertensive treatment compounded by profound increased anion gap metabolic acidosis due to ingestion of unknown toxic substance and prior acute ischemic CVA s/p tPA in a patient with other comorbidities including morbid obesity, MAGGIE. Additional Data: Confirmation of as documented by pronouncing clinician: no pulse, no respirations, no heart sounds and pupils fixed and dilated Family: contacted Additional persons at bedside: nursing staff and beauty advisor Was code activated?: No Autopsy requested?: Yes Advance directives?: Yes Hospice patient?: No Discharge Plan Discharge Patient Disposition: Condition: Stable Referrals: Renaldo Raymundo FNP-C [Primary Care Provider] - Additional Instructions: 213202/13/2020 Discharge Date/Time: 02/13/20 21:33 DS Attestations Time Spent in /Discharge Care*: greater than 30 min Quality - AMI: AMI present?: No Quality - Stroke: CVA present?: Yes Quality - VTE: VTE present?: No Deep Vein Thrombosis/Pulmonary Embolism Present on Admission: No Coding Level of Care Code 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
--- NOTE | 2020-04-14 09:42 | PC.SOCIAL ---
Sister Mary Turner called this am to inquire about certificate. This nurse was pretty sure this has been completed. Called [facility] in [place] and was told yes they have the completed certificate from the physician and nothing more is needed from us. Per Alona's they are updating the brother. Updated Mary and she indicates that this is not the case and indicates they are being told awaiting the certificate. This nurse suggested all communication go through the home at this time. Mary was given this nurse name and contact number. She verbalized understanding.
== END 2020-02-13 21:33 | disposition expired | DRG 917 ==
LOC: ER 16:00 → ICU 16:55
PROVIDERS: Hospitalist; Admitting Provider Family Medicine; Emergency Provider Emergency Medicine; Family Provider Nurse Practitioner; PCP Nurse Practitioner; Visit Provider Family Medicine
DX: T52.8X2A Toxic effect of other organic solvents, intentional self-harm, initial encounter (principal); I63.9 Cerebral infarction, unspecified; S06.1X9A Traumatic cerebral edema with loss of consciousness of unspecified duration, initial encounter; J96.01 Acute respiratory failure with hypoxia; J96.02 Acute respiratory failure with hypercapnia; I21.A1 Myocardial infarction type 2; Z68.41 Body mass index [BMI] 40.0-44.9, adult; G81.91 Hemiplegia, unspecified affecting right dominant side; E87.2 Acidosis; N17.9 Acute kidney failure, unspecified; G91.9 Hydrocephalus, unspecified; Y92.9 Unspecified place or not applicable; E66.01 Morbid (severe) obesity due to excess calories; F32.9 Major depressive disorder, single episode, unspecified; G47.33 Obstructive sleep apnea (adult) (pediatric); Z87.891 Personal history of nicotine dependence; I16.0 Hypertensive urgency; R47.1 Dysarthria and anarthria; H53.9 Unspecified visual disturbance; H53.47 Heteronymous bilateral field defects; R29.718 NIHSS score 18; Z66 Do not resuscitate; D75.1 Secondary polycythemia
CPT/HCPCS: 12345; 36415; 36416; 36600; 70450; 70496; 70498; 71045; 80048; 80053; 80061; 80306; 80307; 81001; 82009; 82550; 82693; 82803; 82962; 83036; 83605; 83930; 84484; 85025; 85610; 85730; 87040; 87635; 90935; 93005; 94002; 94003; 94799; 96375; 99284; C1750; J0360; J0610; J1451; J1815; J1956; J2060; J2250; J2270; J2405; J2543; J2704; J2997; J3370; J3411; J3490; J7030; J7050; Q3014; Q9967